=== PATIENT | male | born 1955 | race Asian ===

== ENCOUNTER 2025-06-29 09:56 | Day surgery (SDC) | payer OTHER, SELFPAY ==
[2025-06-29] VITALS (13 sets, daily range): BP systolic 148–211; BP diastolic 67–112; BMI 24.6
[2025-06-29 10:37] LABS: Glucose - Point of Care 140 mg/dl (70-99)
[2025-06-29] MEDS: NSS 220 ML IV (11:17)
--- NOTE | 2025-06-29 13:39 | ITS.CL.CATH ---
Hide Inspector - Catheterization
Cardiac Catheterization
Procedure Report:
CARDIAC CATHETERIZATION REPORT
Date of Procedure: 06/29/2025
Referring: Noelle Ramos M.D.
INDICATION: Known coronary artery disease, accelerating angina.
PROCEDURE:
1. Left heart catheterization.
2. Coronary angiography.
3. Successful IFR of the mid LAD.
A total of 68 minutes of procedural/moderate sedation was utilized. An independent medical doctor nuclear medicine was present to assist with and help manage the patient's level of consciousness and physiologic status.
ACCESS:
1. 6 Burmese right radial artery using a modified Seldinger technique.
2. 6 Burmese right common femoral artery using a modified Seldinger technique with a micropuncture kit under ultrasound guidance.
CATHETERS:
1. 4 Burmese JR4.
2. 4 Burmese JL 3.5.
3. 6 Burmese EBU 3.75 guiding catheter.
HEMODYNAMIC DATA
Weight (kg): 73.5
AO (s/d/x, mmHg): 127/58/83
LV (s/x mmHg): 127/22
LEFT VENTRICULOGRAPHY: Not performed.
CORONARY ANGIOGRAPHY
Dominance: Right.
Left Main: Normal size, bifurcating vessel. There is no coronary artery disease.
LAD: Normal size, densely calcified vessel giving rise to 1 notable diagonal. There is a 60% lesion in the mid LAD.
Ramus: Congenitally absent.
Circumflex: Normal size, nondominant vessel giving rise to 1 obtuse marginal which subsequently bifurcates into 2 daughter branches. There is a 60-70% lesion in the ostium of the circumflex. There is a new, 80% lesion in the proximal circumflex,
immediately proximal to the bifurcation point.
RCA: Normal size, dominant vessel. There is a 90% lesion in the mid vessel. The distal RCA is chronically totally occluded at the crux. The RPDA and distal RCA are supplied by collaterals from the LAD.
INTERVENTION(S)
1. Successful IFR of the 60% mid LAD lesion, demonstrating occlusive disease (IFR = 0.86).
Narrative:
The decision was made to perform physiologic testing. The diagnostic catheter was removed over a wire and exchanged for a(n) 6 Burmese EBU 3.75 guiding catheter. The guiding catheter was advanced into the ascending aorta and seated in the left main
coronary artery. Additional heparin was given to obtain an ACT greater than 250 seconds. An iFR wire was zeroed outside of the body, then inserted into the guiding sheath. The wire was advanced and the transducer was normalized just outside of the
guiding catheter tip. The wire was advanced into the mid LAD, beyond the 60% lesion. Three iFR measurements were taken. The lesion was determined to be occluded (0.86).
Closure Device: Vascular band for the right radial artery, 6 Burmese Angio-Seal for the right common femoral artery.
Radiation (mGy): 416
DAP (cm2.Gy): 20.9
Fluoroscopy time (minutes): 5.7
CONCLUSIONS
1. Right dominant circulation with 90% lesion in the mid RCA followed by total occlusion at the crux, a 60-70% lesion in the ostium of the circumflex, a new 80% lesion in the proximal circumflex immediately proximal to the bifurcation of the AV
groove circumflex and obtuse marginal and an occlusive 60% lesion in the mid LAD (IFR = 0.86).
2. Moderately elevated filling pressures (LVEDP = 22 mmHg at 73.5 kg).
RECOMMENDATIONS:
1. Expectant management after cardiac catheterization via right radial and right femoral approach.
2. Limited weight bearing on the right wrist for one week.
3. Consultation with CT surgery regarding optimal revascularization strategy given the ostial nature of the circumflex lesion and an occlusive mid LAD lesion with a EMERGENCY ROOM CLERK of the right coronary artery.
4. Continue OMT/GDMT as hemodynamics will tolerate.
5. Aggressive secondary prevention with high-dose, high potency statin. Goal LDL <55.
6. Start furosemide 40 mg p.o. daily. BMP in 1 week.
Copy to: Noelle Ramos M.D., Tristan Peace M.D.
Kg Velez DO, FACC, FACP
[2025-06-29 13:56] LABS: ACT-LR - POC > 397 Seconds (116-155)
[2025-06-29] MEDS: APRESOLINE 5 MG IV (15:57)
== END 2025-06-29 17:15 | disposition home or self-care (01) ==
LOC: CATH 09:56
PROVIDERS: ATTENDING PHYSICIAN Internal Medicine Cardiovascular Disease; FAMILY PHYSICIAN Internal Medicine; OTHER PHYSICIAN Internal Medicine Cardiovascular Disease
DX: I25.10 Atherosclerotic heart disease of native coronary artery without angina pectoris (principal); I45.10 Unspecified right bundle-branch block; E11.9 Type 2 diabetes mellitus without complications; I10 Essential (primary) hypertension; Z87.891 Personal history of nicotine dependence
CPT/HCPCS: 93799; 99152; 99153; 82962; 85347; 93005; 93458; C1760; C1769; C1894; Q9967

== ENCOUNTER → 2025-07-18 13:41 | Outpatient (REF) | payer OTHER, SELFPAY | LOC: HWRAD 13:41 | PROVIDERS: ATTENDING PHYSICIAN Thoracic Surgery (Cardiothoracic Vascular Surgery) | DX: I25.10 Atherosclerotic heart disease of native coronary artery without angina pectoris (principal); Z01.810 Encounter for preprocedural cardiovascular examination | CPT/HCPCS: 71250; 93306 ==

== ENCOUNTER 2025-07-25 05:36 | Inpatient (IN) | payer OTHER, SELFPAY ==
[2025-07-14 08:39] VITALS: BMI 25.3
[2025-07-14 09:24] LABS: Urine Character Clear (Clear)
[2025-07-14 09:36] LABS: Hematocrit 38.3 % (39.0-52.0); Hemoglobin 13.1 g/dL (13.0-18.0); INR 0.95; Mean Corp Hgb Conc. 34.2 g/dL (33.0-37.0); Mean Corpuscular Volume 89.3 fL (80.0-94.0); Nucleated Red Blood Cells % 0 % (-); PT 13.1 Sec (11.4-14.6); Platelet Count 221 10^3/uL (130-400); Red Cell Dist. Width 13.4 % (11.5-14.5)
--- NOTE | 2025-07-14 09:55 | CM ---
Chart reviewed. Met with the patient in PAT. Reviewed preoperative and postoperative instructions and restrictions, along with showering guidelines. Gave patient 2 soaps and Cardiac Surgery Book. Patient is agreeable to a home visit with CT
Transitional RN. Patient is independent of ADLS, lives alone in a apartment, 1st floor, 1 CHRIS, 0 DME. Patient's sister lives close and will be able to help patient after surgery. Plan is for the patient to return home with CT Transitional RN.
CM to follow
[2025-07-14 10:26] LABS: Glycohemoglobin (HgbA1c) 7.1 % (4.0-5.6)
[2025-07-14 11:18] LABS: ALT (SGPT) 25 U/L (0-50); AST (SGOT) 24 U/L (17-59); Albumin 4.3 g/dl (3.5-5.0); Alkaline Phosphatase 57 U/L (38-126); Blood Urea Nitrogen 11 mg/dl (9-20); Calcium 9.5 mg/dl (8.4-10.2); Carbon Dioxide 27 mmol/L (22-30); Chloride 95 mmol/L (98-107); Estimated Creatinine Clearance 66 ml/min; Glucose 124 mg/dl (70-99); Potassium 4.9 mmol/L (3.5-5.1); Sodium 130 mmol/L (135-145); Total Protein 7.5 g/dl (6.3-8.2); eGFR > 60.00
[2025-07-25] VITALS (13 sets, daily range): BP systolic 86–188; BP diastolic 69–88; BMI 24.3
--- NOTE | 2025-07-25 05:59 | W.CVOR.SURPR ---
[facility]OR Surgeon Immed Pre Op
-
I have examined this patient prior to performance of the scheduled procedure.
The patient's condition is unchanged from the time of the dictated/written History and
Physical and the patient is able to undergo the scheduled procedure.
[2025-07-25] MEDS: BACTROBAN 2% OINTMENT 1 APPLIC NASAL ×2 (06:15→20:11)
[2025-07-25] MEDS: MAGNESIUM OXIDE 400 MG PO (06:16)
[2025-07-25] MEDS: PROTONIX 40 MG PO (06:16)
--- NOTE | 2025-07-25 06:25 | PTCARENOTE ---
Patient arrived to room 2262 with his [id number]-tiu (Robin Echavarria) and information systems security manager. Patient A+A+Ox3. Patient ambulates without difficulty. No c/o pain or discomfort. Patient confirmed NPO status after midnight. Patient confirmed taking
4% chlorhexidine shower last night and this morning. Patient clipped and prepped. CHG wipes. Admission questions and medication reconciliation completed. Pre-Op medications - Patient's heart rate 55. Dr. Alfaro arrived to talk with patient.
Metoprolol 25 mg PO held per Dr. Alfaro. Patient resting in bed. account underwriter to [facility].
[2025-07-25 07:36] LABS: ACT+ - POC 109 Seconds (82-134)
[2025-07-25 07:54] LABS: B.E. - POC 0.5 mmol/L; Glucose - POC 145 mg/dl (70-99); HCO3 - POC 24 mmol/L (21-28); Hematocrit - POC 32 % PCV (42-52); Hemodilution- POC No; Hemoglobin Calculated - POC 11.0; Ionized Calcium - POC 1.15 mmol/L (1.15-1.33); Lactate - POC 0.47 mmol/L (0.36-0.75); O2 Saturation %Calculated-POC 99.8 % (94-98); PCO2 - POC 36 mmHg (35-48); PO2 - POC 224 mmHg (83-108); POC Comment PRE; Potassium - POC 3.8 mmol/L (3.5-5.1); Sodium - POC 133 mmol/L (136-145); Specimen Type - POC Arterial; pH - POC 7.44 (7.35-7.45)
[2025-07-25 07:57] LABS: Urine Character Clear (Clear)
[2025-07-25 08:19] LABS: Urine Squamous Cell 0-2 /LPF (Few)
[2025-07-25 08:20] LABS: Urine Red Blood Cell 0-2 /HPF (0-2)
--- NOTE | 2025-07-25 08:28 | CM ---
Reviewed chart. Mr. Echavarria is in the operating room today. Prior to admission he resides alone in a first floor apartment with one step to enter. Prior to admission he was independent with ambulation and adls. He does not have any DME in the home.
Medical work-up in progress. The discharge plan is to return home with his sister checking on him and a home visit by the Transitional Care Nurse when medically stable.
[2025-07-25 10:21] LABS: ACT+ - POC 792 Seconds (82-134)
[2025-07-25 10:27] LABS: B.E. - POC 4.8 mmol/L; Glucose - POC 168 mg/dl (70-99); HCO3 - POC 29 mmol/L (21-28); Hematocrit - POC 29 % PCV (42-52); Hemodilution- POC Yes; Hemoglobin Calculated - POC 9.7; Ionized Calcium - POC 1.06 mmol/L (1.15-1.33); Lactate - POC 0.34 mmol/L (0.36-0.75); O2 Saturation %Calculated-POC 100.0 % (94-98); PCO2 - POC 41 mmHg (35-48); PO2 - POC 430 mmHg (83-108); POC Comment CPB; Potassium - POC 3.8 mmol/L (3.5-5.1); Sodium - POC 134 mmol/L (136-145); Specimen Type - POC Arterial; pH - POC 7.46 (7.35-7.45)
[2025-07-25 10:40] LABS: ACT+ - POC 767 Seconds (82-134)
[2025-07-25 10:58] LABS: ACT+ - POC > 1003 Seconds (82-134)
[2025-07-25 10:58] LABS: B.E. - POC 4.0 mmol/L; Glucose - POC 175 mg/dl (70-99); HCO3 - POC 27 mmol/L (21-28); Hematocrit - POC 27 % PCV (42-52); Hemodilution- POC Yes; Hemoglobin Calculated - POC 9.2; Ionized Calcium - POC 1.02 mmol/L (1.15-1.33); Lactate - POC 1.43 mmol/L (0.36-0.75); O2 Saturation %Calculated-POC 99.9 % (94-98); PCO2 - POC 35 mmHg (35-48); PO2 - POC 260 mmHg (83-108); POC Comment CPB; Potassium - POC 4.3 mmol/L (3.5-5.1); Sodium - POC 133 mmol/L (136-145); Specimen Type - POC Arterial; pH - POC 7.50 (7.35-7.45)
[2025-07-25 11:12] LABS: ACT+ - POC 742 Seconds (82-134)
[2025-07-25] MEDS: SYNTHROID PO (11:15)
[2025-07-25 11:22] LABS: B.E. - POC 1.3 mmol/L; Glucose - POC 160 mg/dl (70-99); HCO3 - POC 26 mmol/L (21-28); Hematocrit - POC 29 % PCV (42-52); Hemodilution- POC Yes; Hemoglobin Calculated - POC 9.7; Ionized Calcium - POC 1.07 mmol/L (1.15-1.33); Lactate - POC 1.81 mmol/L (0.36-0.75); O2 Saturation %Calculated-POC 99.8 % (94-98); PCO2 - POC 41 mmHg (35-48); PO2 - POC 244 mmHg (83-108); POC Comment CPB; Potassium - POC 3.6 mmol/L (3.5-5.1); Sodium - POC 137 mmol/L (136-145); Specimen Type - POC Arterial; pH - POC 7.42 (7.35-7.45)
[2025-07-25 11:34] LABS: ACT+ - POC 672 Seconds (82-134)
[2025-07-25 11:50] LABS: B.E. - POC 0.3 mmol/L; Glucose - POC 147 mg/dl (70-99); HCO3 - POC 26 mmol/L (21-28); Hematocrit - POC 30 % PCV (42-52); Hemodilution- POC Yes; Hemoglobin Calculated - POC 10.1; Ionized Calcium - POC 1.07 mmol/L (1.15-1.33); Lactate - POC 1.97 mmol/L (0.36-0.75); O2 Saturation %Calculated-POC 99.9 % (94-98); PCO2 - POC 42 mmHg (35-48); PO2 - POC 299 mmHg (83-108); POC Comment WARM; Potassium - POC 3.5 mmol/L (3.5-5.1); Sodium - POC 140 mmol/L (136-145); Specimen Type - POC Arterial; pH - POC 7.39 (7.35-7.45)
[2025-07-25 12:00] LABS: ACT+ - POC 553 Seconds (82-134)
[2025-07-25 12:15] LABS: ACT+ - POC 582 Seconds (82-134)
[2025-07-25 12:27] LABS: B.E. - POC 3.1 mmol/L; Glucose - POC 129 mg/dl (70-99); HCO3 - POC 27 mmol/L (21-28); Hematocrit - POC 28 % PCV (42-52); Hemodilution- POC Yes; Hemoglobin Calculated - POC 9.6; Ionized Calcium - POC 1.09 mmol/L (1.15-1.33); Lactate - POC 1.57 mmol/L (0.36-0.75); O2 Saturation %Calculated-POC 100.0 % (94-98); PCO2 - POC 40 mmHg (35-48); PO2 - POC 411 mmHg (83-108); POC Comment WARM; Potassium - POC 3.7 mmol/L (3.5-5.1); Sodium - POC 139 mmol/L (136-145); Specimen Type - POC Arterial; pH - POC 7.45 (7.35-7.45)
[2025-07-25 12:34] LABS: ACT+ - POC 483 Seconds (82-134)
[2025-07-25 12:50] LABS: ACT+ - POC 615 Seconds (82-134)
[2025-07-25 13:14] LABS: B.E. - POC -1.3 mmol/L; Glucose - POC 117 mg/dl (70-99); HCO3 - POC 23 mmol/L (21-28); Hematocrit - POC 23 % PCV (42-52); Hemodilution- POC Yes; Hemoglobin Calculated - POC 8.0; Ionized Calcium - POC 1.29 mmol/L (1.15-1.33); Lactate - POC 1.67 mmol/L (0.36-0.75); O2 Saturation %Calculated-POC 99.9 % (94-98); PCO2 - POC 34 mmHg (35-48); PO2 - POC 312 mmHg (83-108); Potassium - POC 3.2 mmol/L (3.5-5.1); Sodium - POC 137 mmol/L (136-145); Specimen Type - POC Arterial; pH - POC 7.44 (7.35-7.45)
[2025-07-25 13:21] LABS: ACT+ - POC 598 Seconds (82-134)
[2025-07-25 13:38] LABS: B.E. - POC 1.9 mmol/L; Glucose - POC 110 mg/dl (70-99); HCO3 - POC 26 mmol/L (21-28); Hematocrit - POC 26 % PCV (42-52); Hemodilution- POC Yes; Hemoglobin Calculated - POC 8.7; Ionized Calcium - POC 1.12 mmol/L (1.15-1.33); Lactate - POC 0.88 mmol/L (0.36-0.75); O2 Saturation %Calculated-POC 100.0 % (94-98); PCO2 - POC 37 mmHg (35-48); PO2 - POC 472 mmHg (83-108); POC Comment CPB; Potassium - POC 4.6 mmol/L (3.5-5.1); Sodium - POC 137 mmol/L (136-145); Specimen Type - POC Arterial; pH - POC 7.45 (7.35-7.45)
[2025-07-25 13:47] LABS: ACT+ - POC 571 Seconds (82-134)
[2025-07-25 14:09] LABS: B.E. - POC 2.5 mmol/L; Glucose - POC 100 mg/dl (70-99); HCO3 - POC 26 mmol/L (21-28); Hematocrit - POC 23 % PCV (42-52); Hemodilution- POC Yes; Hemoglobin Calculated - POC 8.0; Ionized Calcium - POC 1.14 mmol/L (1.15-1.33); Lactate - POC 1.15 mmol/L (0.36-0.75); O2 Saturation %Calculated-POC 100.0 % (94-98); PCO2 - POC 37 mmHg (35-48); PO2 - POC 379 mmHg (83-108); POC Comment CPB; Potassium - POC 3.8 mmol/L (3.5-5.1); Sodium - POC 138 mmol/L (136-145); Specimen Type - POC Arterial; pH - POC 7.46 (7.35-7.45)
[2025-07-25 14:17] LABS: ACT+ - POC 492 Seconds (82-134)
[2025-07-25 14:45] LABS: B.E. - POC 1.7 mmol/L; Glucose - POC 98 mg/dl (70-99); HCO3 - POC 25 mmol/L (21-28); Hematocrit - POC 21 % PCV (42-52); Hemodilution- POC Yes; Hemoglobin Calculated - POC 7.0; Ionized Calcium - POC 1.10 mmol/L (1.15-1.33); Lactate - POC 0.76 mmol/L (0.36-0.75); O2 Saturation %Calculated-POC 100.0 % (94-98); PCO2 - POC 34 mmHg (35-48); PO2 - POC 353 mmHg (83-108); POC Comment WARM; Potassium - POC 4.1 mmol/L (3.5-5.1); Sodium - POC 141 mmol/L (136-145); Specimen Type - POC Arterial; pH - POC 7.48 (7.35-7.45)
[2025-07-25 14:48] LABS: ACT+ - POC 148 Seconds (82-134)
[2025-07-25 15:41] LABS: B.E. - POC -0.3 mmol/L; Glucose - POC 120 mg/dl (70-99); HCO3 - POC 25 mmol/L (21-28); Hematocrit - POC 26 % PCV (42-52); Hemodilution- POC Yes; Hemoglobin Calculated - POC 8.7; Ionized Calcium - POC 1.10 mmol/L (1.15-1.33); Lactate - POC 1.52 mmol/L (0.36-0.75); O2 Saturation %Calculated-POC 99.5 % (94-98); PCO2 - POC 39 mmHg (35-48); PO2 - POC 169 mmHg (83-108); POC Comment PRE; Potassium - POC 4.0 mmol/L (3.5-5.1); Sodium - POC 137 mmol/L (136-145); Specimen Type - POC Arterial; pH - POC 7.40 (7.35-7.45)
--- NOTE | 2025-07-25 15:42 | CON.INTV ---
Consultation
Consultation Request
Date/Time Consultation Requested: 07/25/2025 - 150
Date/Time Consultation Performed: 07/25/2025 - 153
Requesting Provider: UNRULY Duarte
Performing Provider: Dr. Linn
Reason for Consultation: s/p CABG x4 + ELAA
Medical History
-
Chief Complaint: Elective CABG
History of Present Illness:
69-year-old male with a past medical history of CAD, RBBB, DM type II and hypertension who presents for elective CABG. Patient known to the cardiothoracic surgery service with last visit on 07/12/[address] Alfaro. Patient's been experiencing
increased shortness of breath with chest heaviness on exertion and easy fatigability. Patient has known CAD with prior abnormal PET/CT myocardial stress test with subsequent cardiac catheterization showed CAD and was treated medically initially.
He had a repeat cardiac cath in June 2025 which showed progression of his multivessel CAD. Patient then referred to CT surgery here at . Surgical revascularization was discussed with the patient and the patient consented to this. Today,
patient underwent CABG x 4, GSV to OM1 with vein�to�vein anastomosis to graft to D1 and left atrial appendage exclusion with a 35 mm AtriClip. Patient tolerated the procedure well. Patient transferred to the CVICU for further care and paper machine back tender
services consulted for additional management/recommendations.
When I saw the patient he was intubated on SIMV at 12/500/40%/5, with PIP 21 cm water, VTE 516 cc and breathing at 12 breaths/min. Current heart rate 58, BP via A-line 116/56, BP via NIBP: 106/74 and saturating 100%. Currently on Levophed at 4
mcg/min, insulin drip at 2.6 units/hr. He has bilateral pleural chest tubes + mediastinal chest tubes x 2.
PMHx: RBBB, DM type II, hypertension, CAD
PSHx: Right elbow surgery, left shoulder surgery
Past Medical History
Past Medical History: Other (Above as per HPI)
Past Surgical History: Other (Above as per HPI)
Social History
Tobacco: Former Smoker (Quit beginning of July 2025)
Alcohol: Daily (2 drinks daily)
Drug: None
Personal:
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
Family History
Family History: Diabetes (Mother) and Hypertension (Father + mother)
Allergies / Home Medications
Allergies
Allergy/AdvReac Type Severity Reaction Status Date / Time
No Known Drug Allergies Allergy Unknown Verified 07/13/25 09:06
Home Medications
�Medication �Instructions �Recorded �Confirmed �Last Taken �Type
aspirin 81 mg tablet 81 mg PO DAILY Blood Clot 11/06/23 07/25/25 07/24/25 08:00 History
Prevention/Tx 81 mg
levothyroxine 75 mcg tablet 75 mcg PO DAILY Thyroid 11/06/23 07/25/25 07/24/25 08:00 History
75 mcq
losartan 100 mg tablet 50 mg PO DAILY Blood Pressure 11/06/23 07/25/25 07/17/25 08:00 History
100 mg
nitroglycerin 0.4 mg sublingual 0.4 mg sublingual [id number] PRN 11/06/23 07/25/25 Unknown Rx
tablet chest pain #25 tabs
rosuvastatin 20 mg tablet 20 mg PO HS High Cholesterol 11/06/23 07/25/25 07/24/25 20:00 History
20 mg
dapagliflozin propaned 5 1 tab PO BID Diabetes 06/29/25 07/25/25 07/24/25 20:00 History
mg-metformin ER 1,000 mg tablet, 1 Tab
ext rel 24hr (Xigduo XR)
mecobalamin (vitamin B12) 1,000 1,000 mcg PO DAILY Supplement 06/29/25 07/25/25 07/17/25 08:00 History
mcg chewable tablet (B12 Active) 1000 mcq
metoprolol succinate 25 mg 25 mg PO HS Blood Pressure 06/29/25 07/25/25 07/24/25 08:00 History
tablet,extended release 24 hr 25 mg
vitamins A,C,M-ydrh-pmkefl 2,148 2 tab PO BID Supplement 06/29/25 07/25/25 07/17/25 08:00 History
mcg-113 mg-45 mg-17.4 mg tablet 2 Tabs
(PreserVision AREDS)
Review of Systems
-
Unable to Obtain full review of systems at this time due to: Patient Intubation
Vitals / Labs / Diagnostic Testing
Vital Signs
Temp Pulse Resp BP Pulse Ox
98.4 F 55 16 179/83 99
07/25/25 06:13 07/25/25 06:15 07/25/25 06:13 07/25/25 06:15 07/25/25 06:13
Diagnostic Testing:
Physical Exam
-
HEENT: Normocephalic, Anicteric, Other (ETT in place) and Other (Poor dentition with multiple missing teeth)
Cardiovascular: S1/S2 and Peripheral Edema (negative)
Respiratory: Wheeze (negative), Rales (negative), Rhonchi (negative), Non-Labored Respirations, Other (Mechanical breath sounds heard bilaterally) and Other (Bilateral pleural chest tubes + mediastinal chest tubes x 2)
GI: Soft, Non Distended, Non Tender and Normal Bowel Sounds
Neurology: Tremors (negative) and Other (Sedated)
Skin: Warm and Dry
General: Respiratory Distress (negative), Comfortable, Fever (negative) and Chills (negative)
Assessment
-
Assessment: 69-year-old male with a past medical history of CAD, RBBB, DM type II and hypertension who presents for elective CABG. Patient known to the cardiothoracic surgery service with last visit on 07/12/[address] Alfaro. Patient's been
experiencing increased shortness of breath with chest heaviness on exertion and easy fatigability. Patient has known CAD with prior abnormal PET/CT myocardial stress test with subsequent cardiac catheterization showed CAD and was treated medically
initially. He had a repeat cardiac cath in June 2025 which showed progression of his multivessel CAD. Patient then referred to CT surgery here at . Surgical revascularization was discussed with the patient and the patient consented to this.
Today, patient underwent CABG x 4, GSV to OM1 with vein�to�vein anastomosis to graft to D1 and left atrial appendage exclusion with a 35 mm AtriClip. Patient tolerated the procedure well. Patient transferred to the CVICU for further care and
paper machine back tender services consulted for additional management/recommendations.
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
Impression:
#Multivessel CAD s/p CABG x 4 with takedown of RA to OM bypass due to poor radial artery flow with subsequent GSV to OM1 with vein�to�vein anastomosis to graft to D1 (POD #0)
#Acute anemia due to above
#Acute thrombocytopenia due to above
#Hypocalcemia
#Hypertension
#DM type II
#RBBB
Plan:
Ventilator settings reviewed
FiO2 will be weaned to maintain SpO2 >90-94%
Minute ventilation will be adjusted
Arterial blood gases will be monitored
Spontaneous breathing trial will be attempted with hopeful extubation after anesthesia/sedation wear off
prn nebulized bronchodilators - not currently bronchospastic
Pulmonary artery catheter parameters will be followed
Pressors/antihypertensive/inotropes/diuretics will be provided as needed
Maintain MAP>65
Replete electrolytes with K>4, Mg>2
Monitor chest tube output (bilateral pleural chest tubes + mediastinal chest tubes x 2)
Monitor hemoglobin
Monitor platelet count and coags
Transfuse blood products as needed to maintain Hb>7g/dL, plt>50k (given post-operative status)
CT surgery managing chest tubes
Monitor blood sugar to maintain euglycemia with goal BG 110-140
Insulin drip per protocol
Aspiration precautions
VAP prevention protocol
DVT prophylaxis
Early nutrition
Early mobilization
Critical care statement: A total of 42 minutes of critical care time was provided for this patient today. This includes management of ventilator, spontaneous breathing trial, arterial blood gases, pressors, of unstable vital signs, evaluation of the
patient at bedside, reviewing the patient's pertinent medical records including radiographs, microbiology, laboratory evaluations, and discussion with primary team and critical care nursing.
--- NOTE | 2025-07-25 15:43 | W.IMMPOSTOP ---
Addendum entered and electronically signed by Chalo Alfaro MD 07/25/25 16:44:
[id number]
Original Note:
Surgical Immed Post Op Note
-
CARDIAC SURGERY OPERATIVE NOTE:
Preoperative Dx:
MVCAD
Mild
Postoperative Dx:
Same
Procedures:
1) Median sternotomy
2) Takedown of GRISEL (narrow pedicle)
3) Endoscopic harvest of L RA
4) Endoscopic harvest of RLE GSV
5) CABG x 4 (GRISEL to LAD, GSV to D1, RA to OM1, GSV to RPLB)
6) ELAA (35mm AtriClip)
7) Endoscopic harvest of LLE GSV
8) Re-establishment of cardioplegic arrest
9) Takedown of RA to OM bypass
10) GSV to OM1 w/ [id number]-li-[id number] anastomosis to graft to D1
Surgeon:
Chalo Alfaro M.D.
Assistants:
Anai Mireles P.A.-C.; endoscopic harvest/prep of L RA, carpenter assistant installer throughout
Gisela Pelaez P.A.-C.; endoscopic harvert/prep of B/L GSV
Anesthesia:
Freedom Smith M.D. and Rich Bailey, CHeatherR.N.A.
Perfusion:
Leobardo SealsC.PHeather and Truman Kaiser CHeatherCHeatherP.
CPB: 131 + 80 (211); XC: 70 + 67 (137)
Findings:
GRISEL was a healthy conduit w/ brisk flow - ELD 2.5mm
L RA was heavily calcified conduit w/ brisk back bleeding and excellent ELD at 3.50-3.75mm
RLE GSV was reasonable conduit w/ ELD 3.5 w/ variable wall thickness (normal to thin)
LLE GSV was reasonable conduit w/ short segment of usable ELD @ 3.5mm and longer segment of unusable diminutive ELD
LAD was visible on the epicardial surface, moderate scattered calcifications, ELD 2.5mm
D1 was visible on the epicardial surface, moderate scattered calcifications, ELD 2.25mm
OM1 was visibile on the epicardial surface, dense closely spaced calcifications, ELD 2.5mm
RCA was too calcified to accommodate bypass
PDA was too small and calcificed to accommodate bypass
RPLB2 was small, but was amenable to bypass, moderate scattered calcifications, ELD 2.0mm
Post initial separation from CPB, RA w/ no flow on U/S flow probe assessment despite initial back-bleeding
LLE GSV harvest completed
CPB and cardioplegic arrest re-established w/ takedown of RA graft w/ redo anastomosis to OM1 w/ GSV and subsequent hgol-cg-lstj anastomosis off graft to D1
Postop - RA conduit was opened longitudinally, there was a limited dissection associated w/ one of the luminal calcifications w/ flap clearly responsible for observed cessation of flow
Excellent flow in all grafts on U/S flow probe assessment
Post-MANNY: LVEF 65-70% w/o RWMA, RV ok, SUNDAY excluded, [id number] , mild MR (posterior MAC), normal TV, grade 5 distal aortic arch atheromatous disease
Implants:
CT x 4 (B/L pleural, inferior mediastinal, superior mediastinal)
AtriClip 35mm
Sternal wires x 9
Transfusions:
1U PRBC
Complications:
See findings above
Condition:
62 sinus (0.3/0.1), 94/47, CPV 18, 100%
GTTS: levophed 2, precedex 0.5, insulin 1
Stable/guarded to CVICU
[2025-07-25] MEDS: LR 250 ML IV ×3 (16:15→18:40)
[2025-07-25 16:21] LABS: Glucose - Point of Care 113 mg/dl (70-99)
--- NOTE | 2025-07-25 16:30 | W.PN.UPDATE ---
Update Note
Progress Note Update
69 year old male electively admitted 07/25/25 for CABG due to triple vessel coronary disease with exertional angina
IV fluids: 1900
U.O.:� 1400
Blood:� 1PRBC
Wires:� 2 bipolar V wires
Drips: Levophed @ 2, Insulin @ 1, Precedex @ 0.5
�
NEURO: sedated, pupils +2mm B/L
RESP: #8OT @23cm> 500/40%/14/5. Lungs clear B/L. 2 mediastinal (55cc on arrival) and R/L pleural (40cc on arrival) chest tubes to -20cm suction. Sanguineous drainage
CV: RRR +S1, S2, no S3, no�rub, no murmur. Aquacell to median sternotomy. RIJ w/Slik intact
ABD: round, soft, no BS
EXT: no edema, +2/4 DP pulses B/L, no femoral bruit, B/L LE and LUE CLARENCE wraps intact; right radial A-line intact
: Nunez with clear yellow urine
�
A/P: POD #0 s/p CABG x 4 WILKES; SVG-RPL; SVG-OM with SVG Y graft to diag (as radial graft with poor flow), left atrial appendage #35mm clip
MANNY: EF�60-65%
- wean and extubate
- maintain SBP 90-130mmHg
- report of broken shape teeth per anesthesia
# CAD
- will require ASA, Plavix, statin, beta-ervin
�
# acute surgical blood loss anemia-expected
-Hb 8.7 s/p 1 PRBC intra-op
- trend CBC
�
# T2DM (A1C 7.1)
- insulin infusion x 48h
- resume Xigduo on DC
- resume ARB as BP permits
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
�
# Hypothyroidism
- resume�levothyroxine 75mcg daily
[2025-07-25 16:38] LABS: B.E. -1.5 mmol/L; HCO3 22.8 mmol/L (21-28); Hematocrit 27.3 % (39.0-52.0); Hemoglobin 9.7 g/dL (13.0-18.0); O2 Saturation % 99.6 % (94-98); PCO2 36 mmHg (35-48); PO2 157 mmHg (83-108); Platelet Count 122 10^3/uL (130-400); Potassium 4.6 mMOL/L (3.5-5.1); Sodium 137 mMOL/L (136-145)
[2025-07-25 16:46] LABS: INR 1.74; PT 20.5 Sec (11.4-14.6)
[2025-07-25 16:47] LABS: APTT 28.0 Sec (23.4-35.0)
--- NOTE | 2025-07-25 16:47 | PTCARENOTE ---
received pt from [facility] into 2261, sinus rhythm on tele w epicardial wires insulated, + peripheral pulses, no edema noted, + rub. Lungs clear, #8 ETT/ 23cm right lip, VENT SETTINGS: SIMV 40%/500/12/+5 PEEP, POX 100%. CT x4 w red drainage, jacobs
draining clear yellow. Right IJ cordis w swan, PIV flushes easily. RASS -5, CPOT 0.
DRIPS: Levophed 2mcg/min
Precedex 0.5mcg/kg/hr
Insulin titrated per glycemic protocol
--- NOTE | 2025-07-25 16:57 | PTCARENOTE ---
post procedure EKG, CXR and labs obtained as ordered.
[2025-07-25] MEDS: CALCIUM GLUCONATE 100 IV (17:01)
[2025-07-25] MEDS: NSS 500 IV (17:02)
[2025-07-25] MEDS: NEURONTIN PO ×3 (17:02→22:50)
[2025-07-25] MEDS: ANCEF 10 IV ×2 (17:02)
[2025-07-25] MEDS: NOVOLOG FLEXPEN SC ×2 (17:02)
[2025-07-25] MEDS: PACERONE PO (17:03)
[2025-07-25] MEDS: TYLENOL PO ×2 (17:03→22:50)
[2025-07-25 17:19] LABS: Blood Urea Nitrogen 14 mg/dl (9-20); Estimated Creatinine Clearance 83 ml/min; Glucose 107 mg/dl (70-99); Magnesium 2.9 mg/dl (1.6-2.3)
[2025-07-25 17:23] LABS: Glucose - Point of Care 125 mg/dl (70-99)
--- NOTE | 2025-07-25 17:27 | PTCARENOTE ---
Ca replaced as ordered
[2025-07-25] MEDS: DILAUDID 0.5 MG IV ×2 (17:42→22:52)
--- NOTE | 2025-07-25 17:57 | PTCARENOTE ---
pt's son at bedside, updated.
[2025-07-25 18:06] LABS: Glucose - Point of Care 127 mg/dl (70-99)
--- NOTE | 2025-07-25 19:00 | PTCARENOTE ---
report received from previous RN. pt in bed, awakens for short periods, follows commands but agitated, MEEK equally. pupils equal and reactive bilaterally. SR/SB on monitor, HR 50s-60s. epicardial V. wires insulated. + peripheral pulses. no edema
noted, + rub. bilateral breath sounds present. #8 ETT intact @ 23cm right lip, vent set to SIMV 40%/500/12/+5 PEEP, POX 100%. CT x4 intact to -20 cm wall suction, drainage WNL, no air leak present. jacobs catheter intact, draining CYU. hypoactive
bowel sounds present. RIJ cordis and slic catheter intact w KVOs infusing. PIV intact and patent. all surgical sites stable. Levo infusing @ 4mcg. Insulin gtt infusing per protocol.
[2025-07-25 19:08] LABS: Glucose - Point of Care 114 mg/dl (70-99)
[2025-07-25 20:04] LABS: Glucose - Point of Care 120 mg/dl (70-99)
[2025-07-25] MEDS: SENOKOT PO (20:12)
[2025-07-25] MEDS: ANCEF 5 IV (20:25)
[2025-07-25] MEDS: ASPIRIN 300 MG RECTAL (20:25)
[2025-07-25 20:36] LABS: Hematocrit 26.2 % (39.0-52.0); Hemoglobin 9.1 g/dL (13.0-18.0); Platelet Count 148 10^3/uL (130-400)
[2025-07-25 20:56] LABS: Glucose - Point of Care 125 mg/dl (70-99)
[2025-07-25 21:39] LABS: B.E. -2.5 mmol/L; HCO3 20.9 mmol/L (21-28); O2 Saturation % 99.7 % (94-98); PCO2 30 mmHg (35-48); PO2 171 mmHg (83-108); Potassium 4.3 mMOL/L (3.5-5.1)
[2025-07-25] MEDS: SODIUM BICARBONATE 50 MEQ IV (21:57)
--- NOTE | 2025-07-25 22:00 | PTCARENOTE ---
ABG reviewed w CT PA. orders received for 1 amp Na bicarb and 2g Ca gluconate. pt extubated to 6LNC by RT without incident. no wheezing or stridor present. pt oriented x4. IS 1999.
[2025-07-25 22:35] LABS: Glucose - Point of Care 114 mg/dl (70-99)
[2025-07-25] MEDS: CALCIUM GLUCONATE 130 MG IV (22:49)
[2025-07-25] MEDS: CRESTOR PO (22:50)
[2025-07-25] MEDS: ZOFRAN 4 MG IV (22:57)
--- NOTE | 2025-07-25 23:00 | PTCARENOTE ---
no acute changes in assessment, VSS. pt oriented x4. c/o sternal incision pain - see MAR for PRN med administration. SR on monitor, HR 70s. POX 100% on 4LNC. CT output and UO WNL. all surgical sites stable. Levo gtt infusing @ 2mcg. Insulin gtt
infusing per protocol.
--- NOTE | 2025-07-25 23:26 | RESPNOTE ---
Addendum entered by Christi Galan, RT 07/25/25 23:27:
07/25/35 @ 2200
Original Note:
PT was extubated at this time and placed on a 6L n/c and vitals are stable. I/S was done and he achieved 2,000 mls x 3 attempts.
[2025-07-26] VITALS (37 sets, daily range): BP systolic 79–128; BP diastolic 58–88; PULSE 79; O2SAT 99–100; BMI 25.4
[2025-07-26 00:10] LABS: Glucose - Point of Care 111 mg/dl (70-99)
[2025-07-26 01:25] LABS: Glucose - Point of Care 104 mg/dl (70-99)
[2025-07-26 02:33] LABS: Glucose - Point of Care 98 mg/dl (70-99)
--- NOTE | 2025-07-26 03:00 | PTCARENOTE ---
no acute changes in assessment, VSS. pt oriented x4. SR on monitor, HR 70s-80s. POX 100% on room air. CT output and UO WNL. all surgical sites stable. Levo gtt off. Insulin gtt infusing per protocol.
[2025-07-26 03:41] LABS: Glucose - Point of Care 110 mg/dl (70-99)
--- NOTE | 2025-07-26 04:08 | W.PN.CT ---
Today's Communication / Plan
-
Plan:
-No major issues overnight. Hemodynamically and neurologically intact
-Successfully extubated last night 07/25/25 @ 2200
-Weaned of Levophed gtt overnight. Remains on insulin gtt per protocol
-No swan, U/O since OR 1200 mL
-Had postop bradycardia, Amiodarone was held last night. Will assess for PO Amiodarone and BB today
-Currently in NSR @ 78 bpm
-Cont. current meds (ASA, Plavix, Crestor, Synthroid)
-Monitor chest tube for output: 2meds 330/415, R/L pleurals 190/255
-Monitor h/h 8.2/23.2, did receive 750 mL of LR postop
-D/C'd SLIC and A-line this AM @ 0430
-Will D/C jacobs later today to avoid complication of urinary retention, long pump run
-Will renew insulin gtt per protocol, diabetes education/management consult, Hgb A1C 7.1
-Maintain cordis another day for phlebotomy and meds
-Maintain temporary v-wires (will cut before d/c home)
-Encourage use of IS
-Wean O2 as tolerated
-OOB into chair/Ambulate
Assessment / Plan
-
Assessment:
-S/P Median sternotomy/ CABG x 4 (GRISEL to LAD, GSV to D1, RA to OM1, GSV to RPLB)/ Endoscopic harvest of L RA/ Endoscopic harvest of RLE GSV/Endoscopic harvest of LLE GSV/ ELAA (35mm AtriClip)/CPB and cardioplegic arrest re-established w/ takedown
of RA graft w/ redo anastomosis to OM1 w/ GSV and subsequent mfxm-ds-jjmo anastomosis off graft to D1, by Dr. Alfaro, 07/25/25, pod#1
-Severe 3v CAD
-Mild-moderate
-Trace AI
-LVEF 60-65% per intraop MANNY
-HTN
-Hyperlipidemia
-T2DM (hgb A1C 7.1)
-Hypothyroidism
-Chronic RBBB
-Hyponatremia, 130
-Tobacco use (quite 1 week ago)
-S/P R elbow repair
-S/P L shoulder repair
-Acute postop blood loss/Anemia (transfused 1u PRBC)
-Acute postop thrombocytopenia (stable without active bleed)
-Acute postop atelectasis
-Acute postop hypovolemia with subsequent hypervolemia
-Acute postop bradycardia
Discussed patient care with: Cardiology, Nursing, Respiratory Therapy, Pharmacy and Care Team
Subjective
Procedure
S/P Median sternotomy/ CABG x 4 (GRISEL to LAD, GSV to D1, RA to OM1, GSV to RPLB)/ Endoscopic harvest of L RA/ Endoscopic harvest of RLE GSV/Endoscopic harvest of LLE GSV/ ELAA (35mm AtriClip)/CPB and cardioplegic arrest re-established w/ takedown of
RA graft w/ redo anastomosis to OM1 w/ GSV and subsequent hplp-jj-ekdc anastomosis off graft to D1, by Dr. Alfaro, 07/25/25
-
Date of Service: July 26, 2025
Pt c/o incisional pain, otherwise feels well
Objective Data
-
PT 20.5 Sec (11.4-14.6) H 07/25/25 16:15
INR 1.74 07/25/25 16:15
APTT 28.0 Sec (23.4-35.0) 07/25/25 16:15
Vital Signs
Vital Signs
Temp Pulse Resp BP Pulse Ox
98.8 F 84 14 117/80 100
07/26/25 02:00 07/26/25 02:25 07/26/25 02:25 07/26/25 02:25 07/26/25 02:25
CT Intake/Output/Weight
07/25/25 07/25/25 07/26/25
06:59 18:59 06:59
Intake Total 629.5 / 1287.0 657.5 / 1287.0
Output Total 600 / 1600 1000 / 1600
Balance 29.5 / -313.0 -342.5 / -313.0
SaO2: 97 (RA)
Physical Exam
-
General: Awake, Oriented and AOx3
Cardiovascular: Regular rate & rhythm, No Murmurs, No Rub and No Gallop
Respiratory: Decreased Breath Sounds (at bases, otherwise clear )
Sternum: Stable
Incision: Clean, Dry, Intact and Dressing Intact
Extremities: Other (+trace edema)
Data Reviewed
-
Lab Results: Results Reviewed
Medications: Active Meds Reviewed
Chest X-Ray: Report Reviewed and Image Reviewed
ECG: Report Reviewed and Image Reviewed
[2025-07-26 04:10] LABS: Glucose - Point of Care 108 mg/dl (70-99)
[2025-07-26] MEDS: FLEXERIL 5 MG PO (04:30)
[2025-07-26] MEDS: ANCEF 5 IV ×2 (04:30→12:06)
[2025-07-26 04:31] LABS: Hematocrit 23.2 % (39.0-52.0); Hemoglobin 8.2 g/dL (13.0-18.0); Mean Corp Hgb Conc. 35.3 g/dL (33.0-37.0); Mean Corpuscular Volume 87.5 fL (80.0-94.0); Platelet Count 120 10^3/uL (130-400); Red Cell Dist. Width 13.4 % (11.5-14.5)
[2025-07-26 04:57] LABS: Blood Urea Nitrogen 16 mg/dl (9-20); Calcium 8.8 mg/dl (8.4-10.2); Carbon Dioxide 25 mmol/L (22-30); Chloride 110 mmol/L (98-107); Estimated Creatinine Clearance 66 ml/min; Glucose 101 mg/dl (70-99); Magnesium 2.4 mg/dl (1.6-2.3); Potassium 4.3 mmol/L (3.5-5.1); Sodium 140 mmol/L (135-145); eGFR > 60.00
[2025-07-26 05:52] LABS: Glucose - Point of Care 83 mg/dl (70-99)
[2025-07-26] MEDS: TYLENOL 975 MG PO ×3 (05:53→21:08)
[2025-07-26] MEDS: SYNTHROID 75 MCG PO (05:53)
[2025-07-26 06:15] LABS: INR 1.36; PT 17.0 Sec (11.4-14.6)
--- NOTE | 2025-07-26 06:30 | PTCARENOTE ---
RIJ slic catheter and R radial art line d/c'd per orders. jacobs to remain per CT PA. pt assisted OOB to chair without difficulty. weight obtained. VSS.
--- NOTE | 2025-07-26 07:44 | W.PN.INTV ---
Today's Communication / Plan
Recommendations
Continue insulin drip with goal BG 110�140
Pain control
Up OOB as tolerated
Removal of chest tubes per CT surgery team
Maintain SpO2 >90-94%
Trend H/H, transfusion to keep Hb >7-8 g/dL
Flue Cleaner services will continue to follow along while patient remains in CVICU
Assessment
-
Assessment: 69-year-old male with a past medical history of CAD, RBBB, DM type II and hypertension who presents for elective CABG. Patient known to the cardiothoracic surgery service with last visit on 07/12/[address] Alfaro. Patient's been
experiencing increased shortness of breath with chest heaviness on exertion and easy fatigability. Patient has known CAD with prior abnormal PET/CT myocardial stress test with subsequent cardiac catheterization showed CAD and was treated medically
initially. He had a repeat cardiac cath in June 2025 which showed progression of his multivessel CAD. Patient then referred to CT surgery here at . Surgical revascularization was discussed with the patient and the patient consented to this.
Today, patient underwent CABG x 4, GSV to OM1 with vein�to�vein anastomosis to graft to D1 and left atrial appendage exclusion with a 35 mm AtriClip. Patient tolerated the procedure well. Patient transferred to the CVICU for further care and
tone regulator services consulted for additional management/recommendations.
Chronic conditions CV RN: RBBB, DM type II, hypertension, CAD
Impression:
#Multivessel CAD s/p CABG x 4 with takedown of RA to OM bypass due to poor radial artery flow with subsequent GSV to OM1 with vein�to�vein anastomosis to graft to D1 (POD #1)
#Acute anemia due to above
#Acute thrombocytopenia due to above
#Hypocalcemia
#Hypertension
#DM type II
#RBBB
Plan:
Patient was successfully extubated last night and is now on room air breathing comfortably
Maintain SpO2 >90-94%
prn nebulized bronchodilators - not currently bronchospastic
Encourage IS use q1hr while awake
Pressors/antihypertensive/inotropes/diuretics will be provided as needed
Maintain MAP>65
Replete electrolytes with K>4, Mg>2
Monitor chest tube output (bilateral pleural chest tubes + mediastinal chest tubes x 2)
Monitor hemoglobin
Monitor platelet count and coags
Transfuse blood products as needed to maintain Hb>7g/dL, plt>50k (given post-operative status)
CT surgery managing chest tubes
Monitor blood sugar to maintain euglycemia with goal BG 110-140
Insulin drip per protocol
Aspiration precautions
DVT prophylaxis
Early nutrition
Early mobilization
Critical care statement: A total of 42 minutes of critical care time was provided for this patient today. This includes management of ventilator, spontaneous breathing trial, arterial blood gases, pressors, of unstable vital signs, evaluation of the
patient at bedside, reviewing the patient's pertinent medical records including radiographs, microbiology, laboratory evaluations, and discussion with primary team and critical care nursing.
Subjective Dataa
Subjective Data
Date of Service:
Date of Service: July 26, 2025
Chief Complaint: Flue Cleaner Follow Up
Subjective:
Patient seen and evaluated this morning. Currently on insulin drip at 0.7 units/h. Heart rate 72, BP 105/74. Currently on room air breathing comfortably. Has no complaints, denying chest pain, SOB, fevers or chills.
Review of Systems
General: Other (Negative unless mentioned above)
Objective Data
Data Reviewed
Vital Signs / I&O / Oxygen:
Vital Signs
Temp Pulse Resp BP Pulse Ox
98.0 F 91 17 125/76 97
07/26/25 06:00 07/26/25 06:00 07/26/25 06:00 07/26/25 04:39 07/26/25 06:17
Intake and Output
07/24/25 07/25/2507/26/25
06:59 06:59 06:59
Intake Total 1377.6 / 1377.6
Output Total 1889 / 1889
Balance -512.4 / -512.4
SaO2 [CPAP] 100
SaO2 [SIMV] 100
SaO2 97
Nasal Cannula flow liters per 2
minute
Physical Exam
General: Respiratory Distress (negative) and Comfortable
HEENT: Normocephalic, Anicteric and Other (R-IJ cordis)
Cardiovascular: S1-S2, Murmur (MANI heard across anterior precordium), Rub (Positive) and Peripheral Edema (negative)
Respiratory: Wheeze (negative), Crackles (negative), Rhonchi (negative) and Non-Labored Respirations
GI: Soft, Non Distended, Non Tender and Normal Bowel Sounds
Neurology: Awake, Alert, Oriented and Tremors (negative)
Skin: Warm, Dry, Cyanosis (negative) and Jaundice (negative)
Labs/Micro/Reports
Lab Data
07/26/25 04:11
07/26/25 04:11
Laboratory Results
07/25/25 07/25/25 07/26/25
16:15 21:31 04:11
PT 20.5 H Cancelled
INR 1.74 Cancelled
APTT 28.0
pH 7.41 7.45
pCO2 36 30 L
pO2 157 H 171 H
HCO3 22.8 20.9 L
O2 Delivery Level
07/26/25
05:50
PT 17.0 H
INR 1.36
APTT
pH
pCO2
pO2
HCO3
O2 Delivery Level
--- NOTE | 2025-07-26 08:00 | PTCARENOTE ---
pt received from previous RN, oriented, OOB in chair. SR on the monitor, HR 70-80s. +rub. V wires x2, insulated. SBP 90-110s. palpable pulses, L ulnar verified by Doppler. trace generalized edema. pt on RA, 100% POX. lungs diminished in bases. IS
1000-1500ml. CTx4, no air leak or crepitus noted, TRAVEL COUNSELOR aware of output. pt abdomen s/n, denies n/v. clears tolerated. Nunez in place, clear yellow urine. sternal Aquacel intact, chest tube site c/d/i. b/l groins intact. b/l LE CLARENCE bandages in place,
LUE CLARENCE bandage in place. RIJ cordis maintained. PIV. insulin gtt running as ordered. see worklist for VS, I&O, and assessment.
[2025-07-26 08:01] LABS: Glucose - Point of Care 127 mg/dl (70-99)
[2025-07-26] MEDS: NOVOLOG FLEXPEN SC ×2 (08:25→11:30)
[2025-07-26] MEDS: LIDOCAINE 4% PATCH 1 PATCH TOPICAL (08:37)
[2025-07-26] MEDS: PLAVIX 75 MG PO (08:38)
[2025-07-26] MEDS: PROTONIX 40 MG PO (08:38)
[2025-07-26] MEDS: LOPRESSOR 12.5 MG PO ×2 (08:38→19:43)
[2025-07-26] MEDS: NEURONTIN 100 MG PO ×3 (08:38→21:08)
[2025-07-26] MEDS: PACERONE 200 MG PO ×3 (08:38→21:08)
[2025-07-26] MEDS: VITAMIN C 500 MG PO (08:38)
[2025-07-26] MEDS: LOW STRENGTH ASPIRIN 81 MG PO (08:38)
[2025-07-26] MEDS: FEOSOL 325 MG PO (08:38)
[2025-07-26] MEDS: SENOKOT 8.6 MG PO ×2 (08:38→19:43)
[2025-07-26] MEDS: BACTROBAN 2% OINTMENT 1 APPLIC NASAL ×2 (08:39→19:43)
--- NOTE | 2025-07-26 09:08 | W.PN.ANS.POP ---
Anesthesia Post Operative
- Anesthesia Post Op Note
Vital Signs Stable-See Nursing Note: Yes
Airway Patent: Yes
Adequate Pain Control: Yes
Change in Mental Status: No
Current Postoperative Nausea & Vomiting: No
Anesthesia Complications: No
General Anesthetic Recall: No
Unplanned Admission: No
Post Op Hydration Adequate: Yes
- -
Pt OOB to chair, resting comfortably. VSS
--- NOTE | 2025-07-26 09:37 | W.PN.CD ---
Addendum entered and electronically signed by Albert Gonzales MD 07/26/25 10:03:
I saw and examined the patient.
The INSPECTOR WELDED PARTS's note was reviewed and I agree with the note.
Comment:
69-year-old man with hypertension, dyslipidemia, diabetes, former smoker, and coronary artery disease who is s/p CABG x 4 on 07/25/[address] Alfaro. Today he feels well. Some mild chest discomfort at the site of his chest tubes. Left hand feels
cold.
Physical exam: Sitting up in the chair, [address], RRR, no murmurs, clear lungs bilaterally, no lower extremity edema; bandage over sternal wound, CLARENCE wraps on left forearm and both legs
Postop ECG by my review shows normal sinus rhythm with right bundle branch block and T wave inversions in the inferior leads
Telemetry: Normal sinus rhythm
He is doing well post CABG. Continue routine postoperative management per CV surgery.
CV meds: Prophylactic amiodarone 200mg 3 times daily, aspirin 81 mg daily, clopidogrel 75 mg daily, metoprolol 12.5 mg twice daily, rosuvastatin 20 mg daily
Original Note:
Today's Communication / Plan
-
Follow telemetry
Impression / Plan
-
I/P: 69M with HTN, dyslipidemia, type 2 diabetes mellitus, former smoker, and CAD presents for CABG. An abnormal PET/CT in 10/2023 showed basal/mid inferior ischemia and reduced coronary flow reserve. He then had a cardiac cath in November without
intervention done at that time. He was being medically managed by his primary client coordinator where he had LEVIN and chest discomfort prompting another cardiac catheterization prompting CT surgery evaluation.
Primary client coordinator: Dr. Ramos�
CAD s/p CABG x 4 (GRISEL to LAD, GSV to D1, RA to OM1, GSV to RPLB) on 07/25/[address] Alfaro
- Post MANNY LVEF 65-70% without regional wall motion abnormality
- EKG stable in sinus rhythm, maintaining sinus on telemetry
- Rub on exam, follow
HTN, stable, follow
Hypercholesterolemia, goal LDL <55, continue rosuvastatin 20 mg
RBBB
Type 2 diabetes mellitus, HgbA1c 7.1%
Former smoker, quit within the last 30 days, continued cessation recommended
Physical Exam
Vital Signs/Labs
Vital Signs
Temp Pulse Resp BP Pulse Ox
98.3 F 90 20 102/58 100
07/26/25 08:00 07/26/25 09:00 07/26/25 09:00 07/26/25 09:00 07/26/25 09:21
07/25/25 07/26/25 07/27/25
06:59 06:59 06:59
Actual Weight 70.4 kg 73.6 kg
07/26/25 04:11
07/26/25 04:11
PT 17.0 Sec (11.4-14.6) H 07/26/25 05:50
INR 1.36 07/26/25 05:50
APTT 28.0 Sec (23.4-35.0) 07/25/25 16:15
Magnesium 2.4 mg/dl (1.6-2.3) H 07/26/25 04:11
Physical Exam
Constitutional: No acute distress and Comfortable
EENT: Anicteric and Moist mucous membranes
Cardiovascular: Rhythm & rate is regular, Pedal edema is absent, S1S2 is normal and Rub present
Respiratory: Respiratory effort normal and Lungs clear to auscul.
GI: Soft, Distention absent, Flat, Non tender and Normal bowel sounds
Neuro/Psych: AO x 3
Other: Skin (Warm and dry without edema)
Data Reviewed
-
Date of Service: July 26, 2025
EKG: Report Reviewed by me
Labs: Labs Reviewed by me
Old Records: Reviewed
[2025-07-26 10:12] LABS: Glucose - Point of Care 92 mg/dl (70-99)
[2025-07-26] MEDS: NOVOLIN R INSULIN INFUSION 100 IV (11:56)
[2025-07-26 12:04] LABS: Glucose - Point of Care 94 mg/dl (70-99)
[2025-07-26] MEDS: TORADOL 15 MG IV (12:05)
[2025-07-26] MEDS: COLCHICINE 0.3 MG PO (12:06)
--- NOTE | 2025-07-26 12:30 | PTCARENOTE ---
pt VS completed, pt SBP 70-90s in chair, c/o lightheadedness and dizziness w/ standing. pt placed back to bed x2 assist. SBP improved to 90-110s. C PYTHON DEVELOPER aware. PRBC x1 transfusing as ordered. son at bedside, updated. V wires tested w/ C PYTHON DEVELOPER, both sets
capture.
--- NOTE | 2025-07-26 13:09 | PN.DE.MGMTRT ---
Insulin Management
- -
07/26/2025 Diabetes Management Consult
Patient admitted 07/25 for OR for CABG x 4. PMH angina, R BBB, diabetes, HTN, CAD, R coronary artery occlusion. Prior to admission was taking Xigduo 03/1000 BID for diabetes. A1C on admission 7.1%, cr 1, eGFR > 60.
POD 1 s/p CABG. Patient is awake sleepy, answers questions but quickly dozes back off. States he has had diabetes 4 years, follows with endocrine. He states he has a meter but really doesn't test.
Patient currently receiving critical care glycemic protocol @ .3 to 2.6 units of insulin per hour, glucose range 83 to 127. Will continue insulin infusion and assess for readiness to transition to farxiga and metformin in AM.
Discussed with nurse.
Will follow
Diabetes History
- -
Type of Diabetes: 2
Pre-Admission Diabetes Regimen
07/25/25 07/26/25
16:15 04:11
Creatinine 0.8 1.0
Lab Results
Hemoglobin A1c 7.1 % (4.0-5.6) H 07/14/25 08:50
Insulin Pump Settings
IP Diabetes Regimen
07/25/25 07/25/25 07/25/25
16:15 16:19 17:22
Glucose 107 H
POC Glucose 113 H 125 H
07/25/25 07/25/25 07/25/25
18:04 19:07 20:02
Glucose
POC Glucose 127 H 114 H 120 H
07/25/25 07/25/25 07/26/25
20:55 22:34 00:08
Glucose
POC Glucose 125 H 114 H 111 H
07/26/25 07/26/25 07/26/25
01:23 02:30 03:40
Glucose
POC Glucose 104 H 98 110 H
07/26/25 07/26/25 07/26/25
04:08 04:11 05:51
Glucose 101 H
POC Glucose 108 H 83
07/26/25 07/26/25 07/26/25
07:59 10:11 12:02
Glucose
POC Glucose 127 H 92 94
Meal type: Breakfast
Amount consumed: 100%
Patient Education
[2025-07-26 14:00] LABS: Glucose - Point of Care 105 mg/dl (70-99)
[2025-07-26] MEDS: NSS IV (14:39)
--- NOTE | 2025-07-26 14:41 | PTCARENOTE ---
LUE CLARENCE bandage removed. b/l LE CLARENCE bandages removed, L upper leg hematoma x3- above knee, medial thigh and upper thigh. ecchymotic. WARBLE SAW OPERATOR at bedside to assess. pt states not painful unless touched. per WARBLE SAW OPERATOR, left upper leg rewrapped in CLARENCE bandage.
+distal pulse. pt OOB to chair w/ assist. pt states no urge to void at present time.
--- NOTE | 2025-07-26 15:14 | CM ---
Reviewed chart. Met with Mr. Echavarria to review discharge plans. He states he is feeling okay. He states prior to admission he resides alone in an apartment with one step to enter. He states his sister resides across the street from him and she
would like him to stay with her for a shirt period of time. Prior to admission he was independent with ambulation and adls. He does not have any DME in the home. He has a prescription plan and uses [facility].. Medical work-up in progress
Telephone call to his sister, Miss Echavarria, ([phone]) to get her address. The address is [address] [address]. The discharge plan is to go home with his sister and a home visit by the Transitional Care Nurse when medically
stable.
[2025-07-26] MEDS: ANESTHETIC LOZENGE 1 LOZENGE PO (15:38)
[2025-07-26] MEDS: LASIX 40 MG IV (15:38)
--- NOTE | 2025-07-26 16:00 | PTCARENOTE ---
pt VSS, no changes in assessment. no c/o pain. IS encouraged. IV lasix given as ordered.
[2025-07-26 16:17] LABS: Glucose - Point of Care 189 mg/dl (70-99)
[2025-07-26] MEDS: NOVOLOG FLEXPEN 4 UNITS SC (17:24)
[2025-07-26 17:27] LABS: Glucose - Point of Care 152 mg/dl (70-99)
[2025-07-26 19:00] LABS: Glucose - Point of Care 104 mg/dl (70-99)
--- NOTE | 2025-07-26 19:00 | PTCARENOTE ---
Patient received from RN @ 1900. Patient sitting in chair w/ call larose in reach. AOx3. Patient states they have difficulty seeing. SR on monitor. BP 100/62 HR 76. Heart sounds audible w/ rub. Insulated V-wires x2. Right radial and pedal
pulses present on palpation. Left ulnar pulse present w/ Doppler. Trace edema noted. POX 100% RA. Bilateral lungs diminished in bases. IS 1250. Occasional productive cough noted. R/L pleural and 2x mediastinal CT set to -20 suction draining
red fluid. No crepitus, tidaling, or air leaks noted. Bowel sounds hypoactive. Voiding clear yellow urine. Left radial puncture and incision well approximated [place]. Right and left groin punctures well approximated HOME DECORATOR. Left upper leg shanel wrap
dry and intact. Left upper leg hematoma and ecchymosis noted w/ slight tenderness to palpation. Right and left knee incisions well approximated HOME DECORATOR. Sternal dressing dry and intact. CT dressing dry and intact. RIJ cordis and Right PIV patent
and intact. Insulin infusing per protocol.
--- NOTE | 2025-07-26 19:02 | PTCARENOTE ---
pt voiding in urinal, PUBLIC INFORMATION SPECIALIST aware of output. PVR 0ml.
[2025-07-26] MEDS: REMOVE LIDOCAINE PATCH 1 PATCH REMOVE (19:43)
[2025-07-26] MEDS: CRESTOR 20 MG PO (21:08)
[2025-07-26 21:15] LABS: Glucose - Point of Care 111 mg/dl (70-99)
--- NOTE | 2025-07-26 23:30 | PTCARENOTE ---
Addendum entered by Sean Serna RN 07/26/25 23:43:
4oz fruit juice given per CT RADHA Mariano.
Original Note:
Patient reassessed. Blood sugar 55. Insulin drip stopped. hypoglycemic protocol followed. CT RADHA Mariano notified. See worklist for more details.
[2025-07-26 23:52] LABS: Glucose - Point of Care 55 mg/dl (70-99)
[2025-07-26 23:52] LABS: Glucose - Point of Care 71 mg/dl (70-99)
[2025-07-27] VITALS (23 sets, daily range): BP systolic 97–162; BP diastolic 63–86; BMI 26.3
[2025-07-27 01:02] LABS: Glucose - Point of Care 112 mg/dl (70-99)
[2025-07-27 02:06] LABS: Glucose - Point of Care 95 mg/dl (70-99)
[2025-07-27] MEDS: ROXICODONE 2.5 MG PO (02:12)
[2025-07-27 03:04] LABS: Glucose - Point of Care 98 mg/dl (70-99)
--- NOTE | 2025-07-27 03:25 | PTCARENOTE ---
Patient reassessed. SR on monitor. VSS. Labs obtained. See MAR for pain management.
[2025-07-27 03:44] LABS: Hematocrit 21.9 % (39.0-52.0); Hemoglobin 7.7 g/dL (13.0-18.0); Mean Corp Hgb Conc. 35.2 g/dL (33.0-37.0); Mean Corpuscular Volume 89.4 fL (80.0-94.0); Platelet Count 95 10^3/uL (130-400); Red Cell Dist. Width 13.8 % (11.5-14.5)
[2025-07-27 03:59] LABS: Glucose - Point of Care 98 mg/dl (70-99)
[2025-07-27 04:04] LABS: Blood Urea Nitrogen 25 mg/dl (9-20); Calcium 8.3 mg/dl (8.4-10.2); Carbon Dioxide 26 mmol/L (22-30); Chloride 103 mmol/L (98-107); Estimated Creatinine Clearance 55 ml/min; Glucose 84 mg/dl (70-99); Magnesium 2.2 mg/dl (1.6-2.3); Potassium 4.4 mmol/L (3.5-5.1); Sodium 133 mmol/L (135-145); eGFR > 60.00
--- NOTE | 2025-07-27 04:10 | PTCARENOTE ---
Low urine output. Bladder scan 338mL. CT PA García brown.
--- NOTE | 2025-07-27 05:39 | W.PN.CT ---
Today's Communication / Plan
-
-pod #2
-no issues overnight, in nsr 60s
-drips: insulin
-s/p 1 pRBC on 07/26 for symptomatic anemia (Hg 8.2 with dizziness). Hg today 7.7- ? 1pRBC
-Cr is 1.2 today (1.0 on 07/26 and preop)
-follow platelets - 95K today (120K on 07/26)
-CT outputs: 2 meds 60/225, 2 pleur 20/300 in 12/24 hrs
-wt is up from 155 preop, if accurate, to 162 on 07/26
-got 40 iv Lasix on 07/26 with no significant response- continue
-current meds (ASA, Plavix, Crestor, Colchicine, Lopressor, Amio tid, Protonix)
-encourage IS, OOB
Assessment / Plan
-
Assessment:
-S/P Median sternotomy/ CABG x 4 (GRISEL to LAD, GSV to D1, RA to OM1, GSV to RPLB)/ Endoscopic harvest of L RA/ Endoscopic harvest of RLE GSV/Endoscopic harvest of LLE GSV/ ELAA (35mm AtriClip)/CPB and cardioplegic arrest re-established w/ takedown
of RA graft w/ redo anastomosis to OM1 w/ GSV and subsequent pqda-bf-nqvo anastomosis off graft to D1, by Dr. Alfaro, 07/25/25, pod#2
-Severe 3v CAD
-Mild-moderate
-Trace AI
-LVEF 60-65% per intraop MANNY
-HTN
-Hyperlipidemia
-T2DM (hgb A1C 7.1)
-Hypothyroidism
-Chronic RBBB
-Hyponatremia, 130
-Tobacco use (quite 1 week ago)
-S/P R elbow repair
-S/P L shoulder repair
-Acute postop blood loss/Anemia (transfused 2u PRBC)
-Acute postop thrombocytopenia (stable without active bleed)
-Acute postop atelectasis
-Acute postop hypovolemia with subsequent hypervolemia
-Acute postop bradycardia
Discussed patient care with: Nursing and Care Team
Subjective
Procedure
S/P Median sternotomy/ CABG x 4 (GRISEL to LAD, GSV to D1, RA to OM1, GSV to RPLB)/ Endoscopic harvest of L RA/ Endoscopic harvest of RLE GSV/Endoscopic harvest of LLE GSV/ ELAA (35mm AtriClip)/CPB and cardioplegic arrest re-established w/ takedown of
RA graft w/ redo anastomosis to OM1 w/ GSV and subsequent ztvw-ro-nqaj anastomosis off graft to D1, by Dr. Alfaro, 07/25/25
-
Date of Service: July 27, 2025
Objective Data
-
PT 17.0 Sec (11.4-14.6) H 07/26/25 05:50
INR 1.36 07/26/25 05:50
APTT 28.0 Sec (23.4-35.0) 07/25/25 16:15
Vital Signs
Vital Signs
Temp Pulse Resp BP Pulse Ox
98.3 F 67 16 101/65 100
07/27/25 02:53 07/27/25 03:00 07/27/25 02:00 07/27/25 03:00 07/27/25 03:00
CT Intake/Output/Weight
07/26/25 07/26/25 07/27/25
06:59 18:59 06:59
Intake Total 748.1 / 1387.9 1374.1 / 1466.9 92.8 / 1466.9
Output Total 1290 / 1890 855 / 925 70 / 925
Balance -541.9 / -502.1 519.1 / 541.9 22.8 / 541.9
SaO2: 100
Physical Exam
-
General: Awake
Cardiovascular: Regular rate & rhythm, No Murmurs and No Rub
Respiratory: Decreased Breath Sounds
Sternum: Stable
Incision: Clean, Dry and Intact
Extremities: No Edema
Abdomen: soft, nontender, nondistended, + bowel sounds
Data Reviewed
-
Lab Results: Results Reviewed
Medications: Active Meds Reviewed
Chest X-Ray: Report Reviewed and Image Reviewed
ECG: Report Reviewed and Image Reviewed
[2025-07-27 06:11] LABS: Glucose - Point of Care 79 mg/dl (70-99)
[2025-07-27] MEDS: SYNTHROID 75 MCG PO (06:25)
[2025-07-27] MEDS: TYLENOL 975 MG PO ×3 (06:26→20:27)
[2025-07-27 07:08] LABS: Glucose - Point of Care 112 mg/dl (70-99)
--- NOTE | 2025-07-27 07:48 | PN.DE.MGMTRT ---
Insulin Management
- -
07/27/2025: Diabetes Management Follow up
Patient admitted 07/25 for OR for CABG x 4. PMH angina, R BBB, diabetes, HTN, CAD, R coronary artery occlusion. Prior to admission was taking Xigduo 03/1000 BID for diabetes. States he has had diabetes 4 years, follows with endocrine. He states he
has a meter but really doesn't test.
A1C on admission 7.1%, cr 1, eGFR > 60.
Patient is awake, alert, oriented, sitting up in chair, offers no complaints, able to discuss diabetes plan of care.
POD #2 s/p CABG. Currently receiving critical care glycemic protocol @ 0.1 to 1.2 units of insulin per hour, glucose range 79 to 112.
Will continue insulin infusion and transition to Farxiga and metformin this afternoon.
Discussed with nurse. Will cont to follow
Diabetes History
- -
Type of Diabetes: 2
Pre-Admission Diabetes Regimen
07/27/25
03:09
Creatinine 1.2
Lab Results
Hemoglobin A1c 7.1 % (4.0-5.6) H 07/14/25 08:50
Insulin Pump Settings
IP Diabetes Regimen
07/26/25 07/26/25 07/26/25
07:59 10:11 12:02
Glucose
POC Glucose 127 H 92 94
07/26/25 07/26/25 07/26/25
13:59 16:16 17:26
Glucose
POC Glucose 105 H 189 H 152 H
07/26/25 07/26/25 07/26/25
18:58 21:13 23:21
Glucose
POC Glucose 104 H 111 H 55 L*
07/26/25 07/27/25 07/27/25
23:47 01:00 02:05
Glucose
POC Glucose 71 112 H 95
07/27/25 07/27/25 07/27/25
03:03 03:09 03:57
Glucose 84
POC Glucose 98 98
07/27/25 07/27/25
06:09 07:07
Glucose
POC Glucose 79 112 H
Meal type: Breakfast
Amount consumed: 100%
Patient Education
--- NOTE | 2025-07-27 08:19 | W.PN.INTV ---
Today's Communication / Plan
Recommendations
Continue insulin drip with goal BG 110�140, weaning off insulin drip as per protocol
Pain control
Up OOB as tolerated
Removal of chest tubes later this AM per CT surgery team
Maintain SpO2 >90-94%
Trend H/H, transfusion to keep Hb >7-8 g/dL
Patient will be downgraded to CVICU�telemetry status today. Once transferred to CVICU�telemetry status, then Heading Up Machine Operator/Pulmonary service will sign off at that time. Please contact pulmonary service if there are any additional questions or
concerns, and thank you for allowing us to be involved in the care of this patient.
Assessment
-
Assessment: 69-year-old male with a past medical history of CAD, RBBB, DM type II and hypertension who presents for elective CABG. Patient known to the cardiothoracic surgery service with last visit on 07/12/[address] Alfaro. Patient's been
experiencing increased shortness of breath with chest heaviness on exertion and easy fatigability. Patient has known CAD with prior abnormal PET/CT myocardial stress test with subsequent cardiac catheterization showed CAD and was treated medically
initially. He had a repeat cardiac cath in June 2025 which showed progression of his multivessel CAD. Patient then referred to CT surgery here at . Surgical revascularization was discussed with the patient and the patient consented to this.
Today, patient underwent CABG x 4, GSV to OM1 with vein�to�vein anastomosis to graft to D1 and left atrial appendage exclusion with a 35 mm AtriClip. Patient tolerated the procedure well. Patient transferred to the CVICU for further care and
county director services consulted for additional management/recommendations.
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
Impression:
#Multivessel CAD s/p CABG x 4 with takedown of RA to OM bypass due to poor radial artery flow with subsequent GSV to OM1 with vein�to�vein anastomosis to graft to D1 (POD #2)
#Acute anemia due to above
#Acute thrombocytopenia due to above
#Hypocalcemia
#Hypertension
#DM type II
#RBBB
Plan:
Patient was successfully extubated 2 nights ago and is now on room air breathing comfortably
Maintain SpO2 >90-94%
prn nebulized bronchodilators - not currently bronchospastic
Encourage IS use q1hr while awake
Pressors/antihypertensive/inotropes/diuretics will be provided as needed
Maintain MAP>65
Replete electrolytes with K>4, Mg>2
Monitor chest tube output (bilateral pleural chest tubes + mediastinal chest tubes x 2 - all to be removed later this AM)
Monitor hemoglobin
Monitor platelet count and coags
Transfuse blood products as needed to maintain Hb>7g/dL, plt>50k (given post-operative status)
CT surgery managing chest tubes
Monitor blood sugar to maintain euglycemia with goal BG 110-140
Insulin drip per protocol - to be weaned off today
Aspiration precautions
DVT prophylaxis
Early nutrition
Early mobilization
Patient will be downgraded to CVICU�telemetry status today. Once transferred to CVICU�telemetry status, then Heading Up Machine Operator/Pulmonary service will sign off at that time. Please contact pulmonary service if there are any additional questions or
concerns, and thank you for allowing us to be involved in the care of this patient.
Total time spent today was 57 minutes for this encounter. Time includes reviewing laboratory test/imaging results, reviewing pertinent medical records, obtaining and reviewing medical history, performing an appropriate exam, ordering medications,
tests and procedures. Time also includes documentation of this encounter, coordinating patient care and communicating with other healthcare professionals. Total time does not include separately billed tests performed on this date of service.
Subjective Dataa
Subjective Data
Date of Service:
Date of Service: July 27, 2025
Chief Complaint: Heading Up Machine Operator Follow Up
Subjective:
Patient was seen and evaluated today at bedside. Currently on insulin drip at 1.5 units/h. Afebrile overnight. On room air breathing comfortably. Currently has no complaints.
Review of Systems
General: Other (Negative unless mentioned above)
Objective Data
Data Reviewed
Vital Signs / I&O / Oxygen:
Vital Signs
Temp Pulse Resp BP Pulse Ox
99.1 F 69 16 131/73 98
07/27/25 09:00 07/27/25 09:30 07/27/25 09:00 07/27/25 09:00 07/27/25 09:00
Intake and Output
07/26/25 07/27/25 07/28/25
06:59 06:59 06:59
Intake Total 1377.6 / 1387.9 1498.6 / 1509.8 23.5 / 23.5
Output Total 1890 / 1890 1265 / 1290
Balance -512.4 / -502.1 233.6 / 219.8 -1.5 / -1.5
SaO2 [CPAP] 100
SaO2 [SIMV] 100
SaO2 98
Nasal Cannula flow liters per 2
minute
Physical Exam
General: Respiratory Distress (negative) and Comfortable
HEENT: Normocephalic, Anicteric and Other (R-IJ cordis)
Cardiovascular: S1-S2, Murmur (MANI heard across anterior precordium), Rub (Positive) and Peripheral Edema (negative)
Respiratory: Wheeze (negative), Crackles (negative), Rhonchi (negative) and Non-Labored Respirations
GI: Soft, Non Distended, Non Tender and Normal Bowel Sounds
Neurology: Awake, Alert, Oriented and Tremors (negative)
Skin: Warm, Dry, Cyanosis (negative) and Jaundice (negative)
Labs/Micro/Reports
Lab Data
07/27/25 03:09
07/27/25 03:09
Microbiology
07/25/25 07:15 Urine Urine Culture - Final
NO GROWTH
[2025-07-27 09:00] LABS: Glucose - Point of Care 113 mg/dl (70-99)
[2025-07-27] MEDS: PLAVIX 75 MG PO (09:02)
[2025-07-27] MEDS: LOPRESSOR 12.5 MG PO (09:02)
[2025-07-27] MEDS: PROTONIX 40 MG PO (09:02)
[2025-07-27] MEDS: VITAMIN C 500 MG PO (09:02)
[2025-07-27] MEDS: COLCHICINE 0.3 MG PO (09:02)
[2025-07-27] MEDS: LOW STRENGTH ASPIRIN 81 MG PO (09:02)
[2025-07-27] MEDS: FEOSOL 325 MG PO (09:03)
[2025-07-27] MEDS: PACERONE 200 MG PO ×3 (09:03→21:31)
[2025-07-27] MEDS: LIDOCAINE 4% PATCH 1 PATCH TOPICAL (09:03)
[2025-07-27] MEDS: NEURONTIN 100 MG PO ×3 (09:03→21:31)
[2025-07-27] MEDS: SENOKOT 8.6 MG PO ×2 (09:03→20:18)
[2025-07-27] MEDS: NOVOLOG FLEXPEN SC ×2 (09:04→13:34)
[2025-07-27] MEDS: BACTROBAN 2% OINTMENT 1 APPLIC NASAL ×2 (09:04→21:30)
--- NOTE | 2025-07-27 09:54 | PTCARENOTE ---
assumed care of pt from previous shift RN, sinus rhythm on tele, V wires insulated, + peripheral pulses, no edema noted. Lungs diminished, pox 98-100% on RA, coughing and deep breathing encouraged. +bs, tolerating PO intake. Surgical sites stable.
Right IJ cordis and PIV flush easily. CT x2 w minimal amount of drainage. Plan of care reviewed and questions encouraged.
--- NOTE | 2025-07-27 10:32 | W.PN.CD ---
Today's Communication / Plan
-
Getting 1 unit PRBCs today.
Monitor for volume overload. Looks euvolemic for now.
Impression / Plan
-
I/P: 69M with HTN, dyslipidemia, type 2 diabetes mellitus, former smoker, and CAD presents for CABG. An abnormal PET/CT in 10/2023 showed basal/mid inferior ischemia and reduced coronary flow reserve. He then had a cardiac cath in November without
intervention done at that time. He was being medically managed by his primary gift wrapper where he had LEVIN and chest discomfort prompting another cardiac catheterization prompting CT surgery evaluation.
Primary gift wrapper: Dr. Ramos�
CAD s/p CABG x 4 (GRISEL to LAD, GSV to D1, RA to OM1, GSV to RPLB) on 07/25/[address] Alfaro
- Post MANNY LVEF 65-70% without regional wall motion abnormality
- EKG stable in sinus rhythm, maintaining sinus on telemetry
- Continue routine postoperative care per CT surgery
- Continue aspirin, Plavix, statin, and metoprolol
Anemia
- S/p 1 unit PRBCs on 07/26 without appropriate bump. Plan for additional 1 unit PRBCs today
- Likely postoperative oozing. Hemodynamically stable and no overt signs of bleeding.
- Continue to follow
HTN, stable, follow
Hypercholesterolemia, goal LDL <55, continue rosuvastatin 20 mg
RBBB
Type 2 diabetes mellitus, HgbA1c 7.1%
Former smoker, quit within the last 30 days, continued cessation recommended
Subjective: Patient feels well. Complaining of mild chest discomfort. Stable from yesterday. Left hand numbness has improved. He denies overt bleeding.
Telemetry: 1 short run of AIVR
Physical Exam
Vital Signs/Labs
Vital Signs
Temp Pulse Resp BP Pulse Ox
99.1 F 77 16 141/76 100
07/27/25 09:00 07/27/25 10:00 07/27/25 10:00 07/27/25 10:00 07/27/25 10:02
07/26/25 07/27/25 07/28/25
06:59 06:59 06:59
Actual Weight 162 lb 4.163 oz 167 lb 12.348 oz
07/27/25 03:09
07/27/25 03:09
PT 17.0 Sec (11.4-14.6) H 07/26/25 05:50
INR 1.36 07/26/25 05:50
APTT 28.0 Sec (23.4-35.0) 07/25/25 16:15
Magnesium 2.2 mg/dl (1.6-2.3) 07/27/25 03:09
Physical Exam
Constitutional: No acute distress and Comfortable
Cardiovascular: Rhythm & rate is regular, Pedal edema is absent, S1S2 is normal and Murmur/rub/gallop absent
Respiratory: Respiratory effort normal and Crackles Present
Neuro/Psych: AO x 3
Data Reviewed
-
Date of Service: July 27, 2025
Medical Decision Making: Reviewed Test Results, Test Interpretation and Review of Case with other Provider
EKG: Tracing Personally Visualized and interpreted
Echo: Report Reviewed by me
Labs: Labs Reviewed by me
[2025-07-27 10:45] LABS: Glucose - Point of Care 172 mg/dl (70-99)
--- NOTE | 2025-07-27 10:50 | PTCARENOTE ---
CTs removed as ordered. 1 Unit of PRBC transfusing as ordered.
--- NOTE | 2025-07-27 11:31 | PTCARENOTE ---
PRBC transfusion completed without incident.
[2025-07-27 13:17] LABS: Glucose - Point of Care 130 mg/dl (70-99)
[2025-07-27] MEDS: FARXIGA 10 MG PO (13:37)
[2025-07-27] MEDS: NSS 500 IV (13:38)
[2025-07-27] MEDS: LASIX 40 MG IV (14:15)
--- NOTE | 2025-07-27 15:48 | PTCARENOTE ---
07/27/2025 DIABETES EDUCATION CONSULTATION
I met with patient to review diabetes management. He states he has had diabetes for approximately 30 years. His HbA1c is 7.1% and he does not monitor his blood sugar at home.
I educated on physiology of T2D, organ damage, managing with medications, monitoring BG, nutrition, activity, sleep and managing stress. I reinforced signs of hyperglycemia, hypoglycemia and hypoglycemia protocol; BS parameters and recommended HbA1c
goals, glucometer and CGM instructions, glucose tracker, medic alert bracelet and outpatient DSME program. Written material provided.
I provided patient with a [employer] Next Gen glucometer sample kit. Provided verbal instructions on proper blood sugar testing technique. He declined demonstration stating that he has checked his blood sugar in the past and the staff just checked
his BS.
Discussed normal target glucose ranges and a monitoring schedule QD.
Encouraged patient to follow up with his PCP for post d/c appointment and to monitor medication and blood glucose levels. Patient verbalized understanding.
[2025-07-27] MEDS: GLUCOPHAGE 1000 MG PO (16:15)
[2025-07-27 17:40] LABS: Glucose - Point of Care 209 mg/dl (70-99)
[2025-07-27] MEDS: NOVOLOG FLEXPEN-LOW RESISTANCE 2 UNITS SC (17:41)
--- NOTE | 2025-07-27 20:00 | PTCARENOTE ---
Assumed care of patient at 1900. Patient found oob in chair at time of assessment. Patient is AOx4, follows commands appropriately, moves all extremities. Lung sounds are clear and equal bilaterally, saO2 99% on RA. Heart sounds are audible, patient
is SR on the monitor, normal palpable R radial, weak but palpable L ulnar, and normal palpable DP pulses. There is +1 edema present in the LUE. Patient has active BS in all four quadrants and is voiding. Patient has sternal incision with aquacell
dressing that is CDI, L radial incision approx with surg adhesive [place] site appears swollen with some erythema around site. Patient has bilateral groin punctures approx with surg adhesive [employer]AND GENERATION MANAGER, LLE incision approx with surg adhesive [employer]AND GENERATION MANAGER ecchymotic
black around site, RLE incision approx with surg adhesive [employer]AND GENERATION MANAGER ecchymotic black around site. Patient has R IJ cordis receiving KVO and 20G R FA PIV. VSS. Call larose within reach.
[2025-07-27] MEDS: REMOVE LIDOCAINE PATCH 1 PATCH REMOVE (20:28)
[2025-07-27] MEDS: LOPRESSOR PO ×2 (20:35→21:54)
[2025-07-27] MEDS: CRESTOR 20 MG PO (21:30)
[2025-07-27] MEDS: LOPRESSOR 25 MG PO (21:30)
[2025-07-27 21:38] LABS: Glucose - Point of Care 213 mg/dl (70-99)
[2025-07-28] VITALS (8 sets, daily range): BP systolic 98–157; BP diastolic 62–80; PULSE 87; O2SAT 100; BMI 26.2
--- NOTE | 2025-07-28 | PTCARENOTE ---
Addendum entered by Gaston Ho RN 07/28/25 03:34:
12.5 Lopressor dose increased to 25 mg for hypertension at 2100
Original Note:
Patient reassessed. VSS. Remains SR on the monitor. Call larose within reach.
[2025-07-28 04:35] LABS: Hematocrit 25.4 % (39.0-52.0); Hemoglobin 9.3 g/dL (13.0-18.0); Mean Corp Hgb Conc. 36.6 g/dL (33.0-37.0); Mean Corpuscular Volume 87.6 fL (80.0-94.0); Platelet Count 102 10^3/uL (130-400); Red Cell Dist. Width 14.4 % (11.5-14.5)
[2025-07-28 04:58] LABS: Blood Urea Nitrogen 25 mg/dl (9-20); Calcium 8.5 mg/dl (8.4-10.2); Carbon Dioxide 27 mmol/L (22-30); Chloride 101 mmol/L (98-107); Estimated Creatinine Clearance 66 ml/min; Glucose 143 mg/dl (70-99); Magnesium 2.0 mg/dl (1.6-2.3); Potassium 4.6 mmol/L (3.5-5.1); Sodium 132 mmol/L (135-145); eGFR > 60.00
[2025-07-28] MEDS: TYLENOL 975 MG PO ×3 (05:55→21:21)
[2025-07-28] MEDS: SYNTHROID 75 MCG PO (05:56)
--- NOTE | 2025-07-28 06:00 | PTCARENOTE ---
Patient reassessed. VSS. Warm compress applied to L arm for tenderness which patient reported gave relief. AM hygiene care provided. OOB to chair. Remains SR on the monitor.
[2025-07-28 07:55] LABS: Glucose - Point of Care 173 mg/dl (70-99)
[2025-07-28] MEDS: FARXIGA 10 MG PO (08:05)
[2025-07-28] MEDS: PROTONIX 40 MG PO (08:05)
[2025-07-28] MEDS: GLUCOPHAGE 1000 MG PO ×2 (08:05→16:30)
[2025-07-28] MEDS: PLAVIX 75 MG PO (08:06)
[2025-07-28] MEDS: LOW STRENGTH ASPIRIN 81 MG PO (08:06)
[2025-07-28] MEDS: COLCHICINE 0.3 MG PO (08:06)
[2025-07-28] MEDS: NEURONTIN 100 MG PO ×3 (08:06→21:21)
[2025-07-28] MEDS: PACERONE 200 MG PO ×3 (08:06→21:22)
[2025-07-28] MEDS: SENOKOT 8.6 MG PO ×2 (08:06→20:10)
[2025-07-28] MEDS: FEOSOL 325 MG PO (08:06)
[2025-07-28] MEDS: VITAMIN C 500 MG PO (08:06)
[2025-07-28] MEDS: NOVOLOG FLEXPEN-LOW RESISTANCE 1 UNITS SC ×2 (08:07→13:55)
[2025-07-28] MEDS: LIDOCAINE 4% PATCH TOPICAL (08:07)
[2025-07-28] MEDS: BACTROBAN 2% OINTMENT 1 APPLIC NASAL ×2 (08:07→20:10)
--- NOTE | 2025-07-28 08:12 | W.PN.CT ---
Today's Communication / Plan
-
-pod #3
-no significant issues overnigt
-c/o L forearm pain (site of radial artery harvest). There is a small hematoma just distal to the elbow, tender with touch, soft. Full ROM at the hand, intact sensation, 2+ radial pulse, good capillary refill. No sign of infection (cdi incision, no
redness or heat)
-encouraged pt to use L arm more and continue warm compresses, which make him feel better
-Cr improved - 1.0 today (1.2 on 07/27 and 1.0 preop)
-Platelets improving - 102K today - follow
-diuresed with 40 iv Lasix on 07/27 - UO 1000/3050 in 24 hrs
-encourage IS, OOB
Assessment / Plan
-
Assessment:
-S/P Median sternotomy/ CABG x 4 (GRISEL to LAD, GSV to D1, RA to OM1, GSV to RPLB)/ Endoscopic harvest of L RA/ Endoscopic harvest of RLE GSV/Endoscopic harvest of LLE GSV/ ELAA (35mm AtriClip)/CPB and cardioplegic arrest re-established w/ takedown
of RA graft w/ redo anastomosis to OM1 w/ GSV and subsequent [id number]-xu-[id number] anastomosis off graft to D1, by Dr. Alfaro, 07/25/25, pod#3
-Severe 3v CAD
-Mild-moderate
-Trace AI
-LVEF 60-65% per intraop MANNY
-HTN
-Hyperlipidemia
-T2DM (hgb A1C 7.1)
-Hypothyroidism
-Chronic RBBB
-Hyponatremia, 130
-Tobacco use (quite 1 week ago)
-S/P R elbow repair
-S/P L shoulder repair
-Acute postop blood loss/Anemia (transfused 2u PRBC)
-Acute postop thrombocytopenia (stable without active bleed)
-Acute postop atelectasis
-Acute postop hypovolemia with subsequent hypervolemia
-Acute postop bradycardia
Discussed patient care with: Nursing and Care Team
Subjective
Procedure
S/P Median sternotomy/ CABG x 4 (GRISEL to LAD, GSV to D1, RA to OM1, GSV to RPLB)/ Endoscopic harvest of L RA/ Endoscopic harvest of RLE GSV/Endoscopic harvest of LLE GSV/ ELAA (35mm AtriClip)/CPB and cardioplegic arrest re-established w/ takedown of
RA graft w/ redo anastomosis to OM1 w/ GSV and subsequent [id number]-bt-[id number] anastomosis off graft to D1, by Dr. Alfaro, 07/25/25
-
Date of Service: July 28, 2025
Objective Data
-
Lab Results
07/28/25 04:01
07/28/25 04:01
PT 17.0 Sec (11.4-14.6) H 07/26/25 05:50
INR 1.36 07/26/25 05:50
APTT 28.0 Sec (23.4-35.0) 07/25/25 16:15
Vital Signs
Vital Signs
Temp Pulse Resp BP Pulse Ox
99 F 65 18 149/80 97
07/28/25 08:00 07/28/25 08:00 07/28/25 08:00 07/28/25 07:53 07/28/25 08:00
CT Intake/Output/Weight
07/27/25 07/28/25 07/28/25
18:59 06:59 18:59
Intake Total 318.8 / 318.8
Output Total 2074 / 5 1000 / 3075
Balance -1756.2 / -2756.2 -1000 / -2756.2
SaO2: 97
Physical Exam
-
General: Awake and AOx3
Cardiovascular: Regular rate & rhythm, No Murmurs and No Rub
Respiratory: Decreased Breath Sounds
Sternum: Stable
Incision: Clean, Dry and Intact
Extremities: No Edema
Data Reviewed
-
Lab Results: Results Reviewed
Medications: Active Meds Reviewed
Chest X-Ray: Report Reviewed and Image Reviewed
ECG: Report Reviewed and Image Reviewed
--- NOTE | 2025-07-28 08:40 | PN.DE.MGMTRT ---
Insulin Management
- -
07/28/2025: Diabetes Management Follow up
Patient admitted 07/25 for OR for CABG x 4. PMH angina, R BBB, diabetes, HTN, CAD, R coronary artery occlusion. Prior to admission was taking Xigduo 03/1000 BID for diabetes. States he has had diabetes 4 years, follows with endocrine. He states he
has a meter but really doesn't test.
A1C on admission 7.1%, cr 1, eGFR > 60.
Patient is awake, alert, oriented, sitting up in chair, offers no complaints, able to discuss diabetes plan of care.
POD # 3 s/p CABG. Transitioned off critical care glycemic protocol yesterday to oral regimen.
Glucose 130 to 209 after d/c of insulin infusion. HS glucose up to 213, fasting 143 V, 173 POC this AM.
Will continue Farxiga 10mg daily and Metformin 1000 mg BID with low corrective insulin.
Discussed with pt about adding another oral agent if glucose remains >180 and he was agreeable.
Discussed with nurse. Will closely monitor glucose trend.
Diabetes History
- -
Type of Diabetes: 2
Pre-Admission Diabetes Regimen
07/28/25
04:01
Creatinine 1.0
Lab Results
Hemoglobin A1c 7.1 % (4.0-5.6) H 07/14/25 08:50
Insulin Pump Settings
IP Diabetes Regimen
07/27/25 07/27/25 07/27/25
08:58 10:44 13:15
Glucose
POC Glucose 113 H 172 H 130 H
07/27/25 07/27/25 07/28/25
17:39 21:37 04:01
Glucose 143 H
POC Glucose 209 H 213 H
07/28/25
07:53
Glucose
POC Glucose 173 H
Meal type: Breakfast
Amount consumed: 100%
Patient Education
[2025-07-28] MEDS: TOPROL XL 50 MG PO (08:45)
[2025-07-28] MEDS: LASIX 40 MG IV (08:45)
[2025-07-28] MEDS: COZAAR 25 MG PO (08:45)
[2025-07-28] MEDS: LOPRESSOR PO (08:47)
--- NOTE | 2025-07-28 08:53 | PTCARENOTE ---
Received pt from jackscrew worker RN at 0700; pt AAOx3 and ambulating in room/hallways; NSR RBBB on monitor and VSS; Epicardial V wire x2 insulted; RIJ Cordis and PIV x1 patent; lungs diminished; IS to 1000; positive bowel sounds; pt voiding yellow
urine; palpable pulses throughout; Trace edema in left upper arm; all surgical sites C/D/I; see nursing documentation for further details.
--- NOTE | 2025-07-28 09:40 | W.PN.CD ---
Today's Communication / Plan
-
PAF - appears to have rate controlled afib.
asymptomatic
- continue amiodarone and BB
Impression / Plan
-
I/P: 69M with HTN, dyslipidemia, type 2 diabetes mellitus, former smoker, and CAD presents for CABG. An abnormal PET/CT in 10/2023 showed basal/mid inferior ischemia and reduced coronary flow reserve. He then had a cardiac cath in November without
intervention done at that time. He was being medically managed by his primary therapy manager where he had LEVIN and chest discomfort prompting another cardiac catheterization prompting CT surgery evaluation.
Primary therapy manager: Dr. Ramos�
CAD s/p CABG x 4 (GRISEL to LAD, GSV to D1, RA to OM1, GSV to RPLB) on 07/25/[address] Alfaro
- Post MANNY LVEF 65-70% without regional wall motion abnormality
- Continue aspirin, Plavix, statin, and metoprolol
PAF - appears to have rate controlled afib.
asymptomatic
- continue amiodarone and BB
Anemia
- S/p PRBC. Hb up to 9.3 from 7.7. Monitor
HTN, stable, follow
Hypercholesterolemia, goal LDL <55, continue rosuvastatin 20 mg
RBBB
Type 2 diabetes mellitus, HgbA1c 7.1%
Former smoker, quit within the last 30 days, continued cessation recommended
Subjective: Patient feels well. Complaining of mild chest discomfort. Stable from yesterday. Left hand numbness has improved. He denies overt bleeding.
Telemetry: 1 short run of AIVR
Physical Exam
Vital Signs/Labs
Vital Signs
Temp Pulse Resp BP Pulse Ox
99 F 65 18 149/80 97
07/28/25 08:00 07/28/25 08:00 07/28/25 08:00 07/28/25 07:53 07/28/25 09:07
0907/28/25 07/29/25
06:59 06:59 06:59
Actual Weight 76.1 kg 75.8 kg
07/28/25 04:01
07/28/25 04:01
PT 17.0 Sec (11.4-14.6) H 07/26/25 05:50
INR 1.36 07/26/25 05:50
APTT 28.0 Sec (23.4-35.0) 07/25/25 16:15
Magnesium 2.0 mg/dl (1.6-2.3) 07/28/25 04:01
Physical Exam
Constitutional: No acute distress
Cardiovascular: Rhythm/rate is irregular
Respiratory: Wheeze Absent and Rhonchi Absent
GI: Soft and Non tender
Neuro/Psych: Alert
Data Reviewed
-
Date of Service: July 28, 2025
Medical Decision Making: Reviewed Test Results
EKG: Report Reviewed by me
Echo: Report Reviewed by me
Labs: Labs Reviewed by me
--- NOTE | 2025-07-28 11:24 | PTCARENOTE ---
Assessment unchanged; NSR on monitor and VSS; pt ambulating hallways.
--- NOTE | 2025-07-28 11:25 | PTCARENOTE ---
A-fib on monitor from [id number]; NSR on monitor currently and VSS.
[2025-07-28 13:46] LABS: Glucose - Point of Care 184 mg/dl (70-99)
[2025-07-28 16:18] LABS: Glucose - Point of Care 263 mg/dl (70-99)
--- NOTE | 2025-07-28 17:19 | PTCARENOTE ---
NSR RBBB on monitor and VSS; assessment unchanged and pt resting comfortably in chair.
[2025-07-28] MEDS: NOVOLOG FLEXPEN-LOW RESISTANCE SC (17:41)
[2025-07-28] MEDS: NSS IV (19:24)
--- NOTE | 2025-07-28 20:00 | PTCARENOTE ---
Assumed care of the patient at 1900. Patient OOB to chair, AOx3, pleasant, difficulty seeing items up close at baseline. SR with a RBBB on CM, trace L forearm edema, pulses palpable. Lungs dim at the bases, on RA, IS encouraged. Abdomen SNT,
appetite good. Voiding clear yellow urine into the urinal without difficulty. All surgical sites intact and ecchymotic aside from MSI; which is CDI with Aquacel intact, no ecchymosis appreciated. RIJ cordis intact, CVPA advised to remove in AM;
PIVx1. L arm wrapped with an shanel for comfort. Assessment of needs ongoing, call larose within reach. See nursing worklist for additional intervention details.
[2025-07-28] MEDS: REMOVE LIDOCAINE PATCH REMOVE (20:11)
[2025-07-28] MEDS: CRESTOR 20 MG PO (21:21)
[2025-07-28] MEDS: REFRESH EYE DROPS (PF) 1 DROPS OPHTH (21:22)
[2025-07-28 21:36] LABS: Glucose - Point of Care 215 mg/dl (70-99)
[2025-07-28] MEDS: NOVOLOG FLEXPEN 1 UNITS SC (21:51)
[2025-07-29] VITALS (12 sets, daily range): BP systolic 123–173; BP diastolic 69–80; PULSE 63; O2SAT 98–100; BMI 26.0
--- NOTE | 2025-07-29 00:16 | PTCARENOTE ---
No acute changes. Patient sleeping between care, BP improved without intervention. CVPA aware.
[2025-07-29] MEDS: TOPROL XL 50 MG PO (04:26)
--- NOTE | 2025-07-29 04:28 | PTCARENOTE ---
Pt hypertensive, give morning metoprolol early per CVPA. No other issues.
[2025-07-29 04:56] LABS: Hematocrit 25.7 % (39.0-52.0); Hemoglobin 8.8 g/dL (13.0-18.0); Mean Corp Hgb Conc. 34.2 g/dL (33.0-37.0); Mean Corpuscular Volume 89.2 fL (80.0-94.0); Platelet Count 127 10^3/uL (130-400); Red Cell Dist. Width 14.1 % (11.5-14.5)
[2025-07-29 04:58] LABS: Blood Urea Nitrogen 22 mg/dl (9-20); Calcium 8.3 mg/dl (8.4-10.2); Carbon Dioxide 28 mmol/L (22-30); Chloride 99 mmol/L (98-107); Estimated Creatinine Clearance 73 ml/min; Glucose 129 mg/dl (70-99); Magnesium 2.0 mg/dl (1.6-2.3); Potassium 4.6 mmol/L (3.5-5.1); Sodium 131 mmol/L (135-145); eGFR > 60.00
[2025-07-29] MEDS: SYNTHROID 75 MCG PO (05:58)
[2025-07-29] MEDS: TYLENOL 975 MG PO ×3 (05:58→21:44)
--- NOTE | 2025-07-29 07:08 | W.PN.CT ---
Today's Communication / Plan
-
-pod #4
-no significant issues overnight
-high BP
-Cr improved - 0.9 today (1.2 on 07/27 and 1.0 preop)
-Platelets improving - 127K today
-encourage IS, OOB, ambulate
-d/c home on Friday
Assessment / Plan
-
Assessment:
-S/P Median sternotomy/ CABG x 4 (GRISEL to LAD, GSV to D1, RA to OM1, GSV to RPLB)/ Endoscopic harvest of L RA/ Endoscopic harvest of RLE GSV/Endoscopic harvest of LLE GSV/ ELAA (35mm AtriClip)/CPB and cardioplegic arrest re-established w/ takedown
of RA graft w/ redo anastomosis to OM1 w/ GSV and subsequent gnvr-cc-dsdv anastomosis off graft to D1, by Dr. Alfaro, 07/25/25, pod#4
-Severe 3v CAD
-Mild-moderate
-Trace AI
-LVEF 60-65% per intraop MANNY
-HTN
-Hyperlipidemia
-T2DM (hgb A1C 7.1)
-Hypothyroidism
-Chronic RBBB
-Hyponatremia, 130
-Tobacco use (quite 1 week ago)
-S/P R elbow repair
-S/P L shoulder repair
-Acute postop blood loss/Anemia (transfused 2u PRBC)
-Acute postop thrombocytopenia (stable without active bleed)
-Acute postop atelectasis
-Acute postop hypovolemia with subsequent hypervolemia
-Acute postop bradycardia
Discussed patient care with: Nursing and Care Team
Subjective
Procedure
S/P Median sternotomy/ CABG x 4 (GRISEL to LAD, GSV to D1, RA to OM1, GSV to RPLB)/ Endoscopic harvest of L RA/ Endoscopic harvest of RLE GSV/Endoscopic harvest of LLE GSV/ ELAA (35mm AtriClip)/CPB and cardioplegic arrest re-established w/ takedown of
RA graft w/ redo anastomosis to OM1 w/ GSV and subsequent ypbg-ne-zvxn anastomosis off graft to D1, by Dr. Alfaro, 07/25/25
-
Date of Service: July 29, 2025
Objective Data
-
Lab Results
07/29/25 04:10
07/29/25 04:10
PT 17.0 Sec (11.4-14.6) H 07/26/25 05:50
INR 1.36 07/26/25 05:50
APTT 28.0 Sec (23.4-35.0) 07/25/25 16:15
Vital Signs
Vital Signs
Temp Pulse Resp BP Pulse Ox
97.7 F 73 18 141/77 99
07/29/25 04:07 07/29/25 06:00 07/29/25 04:07 07/29/25 05:04 07/29/25 04:07
CT Intake/Output/Weight
07/28/25 07/29/25 07/29/25
18:59 06:59 18:59
Intake Total 960 / 1540 580 / 1540
Output Total 1600 / 3775 2175 / 3775
Balance -640 / -2235 -1595 / -2235
SaO2: 99
Physical Exam
-
General: Awake and AOx3
Cardiovascular: Regular rate & rhythm, No Murmurs and Rub
Respiratory: Decreased Breath Sounds
Sternum: Stable
Incision: Clean, Dry and Intact
Extremities: No Edema
L arm small hematoma - put shanel-wrap and warm compresses
Data Reviewed
-
Lab Results: Results Reviewed
Medications: Active Meds Reviewed
Chest X-Ray: Report Reviewed and Image Reviewed
ECG: Report Reviewed and Image Reviewed
[2025-07-29] MEDS: PROTONIX 40 MG PO (07:48)
[2025-07-29] MEDS: SENOKOT 8.6 MG PO (07:48)
[2025-07-29] MEDS: FARXIGA 10 MG PO (07:48)
[2025-07-29] MEDS: PLAVIX 75 MG PO (07:48)
[2025-07-29] MEDS: COZAAR 50 MG PO (07:49)
[2025-07-29] MEDS: VITAMIN C 500 MG PO (07:49)
[2025-07-29] MEDS: COLCHICINE 0.3 MG PO (07:49)
[2025-07-29] MEDS: PACERONE 200 MG PO ×3 (07:49→21:44)
[2025-07-29] MEDS: FEOSOL 325 MG PO (07:49)
[2025-07-29] MEDS: NEURONTIN 100 MG PO ×3 (07:49→21:44)
[2025-07-29] MEDS: GLUCOPHAGE 1000 MG PO ×2 (07:49→17:52)
[2025-07-29] MEDS: LOW STRENGTH ASPIRIN 81 MG PO (07:49)
[2025-07-29] MEDS: TOPROL XL PO (07:50)
[2025-07-29] MEDS: BACTROBAN 2% OINTMENT 1 APPLIC NASAL (07:50)
[2025-07-29] MEDS: LIDOCAINE 4% PATCH TOPICAL (07:50)
[2025-07-29] MEDS: NOVOLOG FLEXPEN-LOW RESISTANCE SC ×3 (07:55→16:50)
--- NOTE | 2025-07-29 08:00 | PTCARENOTE ---
Assumed care of patient from table games shift manager RN. RAOULO x 3. Sitting up in the chair. C/o Lt arm discomfort. Garret wrap intact. Skin warm and dry. SR w/ BBB on monitor. Epicardial wires insulated. Passing flatus, appetite good. Voiding
independently. Surgical sites well approximated. Pulses palpable. Plan for day discussed.
--- NOTE | 2025-07-29 08:11 | W.PN.CD ---
Today's Communication / Plan
-
Continue diuretics.
Monitor H/H.
Discussion regarding anticoagulation in light of PAF (limited post operative?).
Discharge planning.
Impression / Plan
-
Impression/Plan: 69M with HTN, dyslipidemia, type 2 diabetes mellitus, former smoker, and MVCAD admitted for elective CABG.
Primary wilton weaver: Dr. Ramos�
#CAD
-Chronic, progressive.
-s/p CABG x 4 (GRISEL to LAD, SVG to RPLB, SVG to D1 with SVG Y-graft to OM1) on 07/25/[address] Alfaro.
-Continue routine post operative care.
-Incentive spirometry.
-Ambulate.
-Continue amiodarone, aspirin, clopidogrel, metoprolol and rosuvastatin.
-Continue furosemide as his weight is still up.
#Atrial Fibrillation
-Paroxysmal. Asymptomatic.
-Currently in NSR.
-Rate/rhythm control with metoprolol, amiodarone.
-CHADS2-Vasc = 4 (HTN, Age, DM, vascular disease).
-Primary prevention with LAAE (#35 AtriClip)
-Discussion regarding therapeutic anticoagulation as an outpatient. Currently on hold due to anemia.
#Anemia
-Acute blood loss/post operative.
-Hbg 8.8 today. There is some dilution component.
-Anticoagulation on hold.
-Continue to diurese to improve hemoconcentration.
#HTN
-Chronic, elevated overnight.
-Continue losartan at 50 mg daily (home dose).
#Hypercholesterolemia
-Chronic.
-Continue rosuvastatin 20 mg. Goal LDL < 55.
#Type 2 diabetes mellitus
-Chronic, mildly uncontrolled.
-HgbA1c 7.1%.
-Continue dapagliflozin.
-The patient would benefit from GLP-1 analogs as an outpatient.
#RBBB
#Former smoker, quit within the last 30 days, continued cessation recommended.
Subjective/Interval History:
Hypertensive.
Losartan increased to 50 mg daily.
Weight down 0.6 kg, still up 4.8 kg from baseline.
Hbg down to 8.8.
Platelets up to 127k.
DATA:
Cardiac Catheterization, 06/29/2025:
CONCLUSIONS
1. Right dominant circulation with 90% lesion in the mid RCA followed by total occlusion at the crux, a 60-70% lesion in the ostium of the circumflex, a new 80% lesion in the proximal circumflex immediately proximal to the bifurcation of the AV
groove circumflex and obtuse marginal and an occlusive 60% lesion in the mid LAD (IFR = 0.86).
2. Moderately elevated filling pressures (LVEDP = 22 mmHg at 73.5 kg).
CABG, 07/25/2025:
PROCEDURES:
1. Median sternotomy
2. Takedown of GRISEL (narrow pedicle)
3. Endoscopic harvest of L RA
4. Endoscopic harvest of RLE GSV
5. CABG x 4 (GRISEL to LAD, GSV to D1, RA to OM1, GSV to RPLB)
6. ELAA (35mm AtriClip)
7. Endoscopic harvest of LLE GSV
8. Re-establishment of cardioplegic arrest
9. Takedown of RA to OM bypass
10. GSV to OM1 w/ xigs-od-hiqc anastomosis to graft to D1.
Physical Exam
Vital Signs/Labs
Vital Signs
Temp Pulse Resp BP Pulse Ox
36.9 C 59 18 135/75 100
07/29/25 07:54 07/29/25 07:54 07/29/25 07:54 07/29/25 07:38 07/29/25 07:54
07/27/25 07/28/25 07/29/25
11:59 11:59 11:59
Actual Weight 76.1 kg 75.8 kg 75.2 kg
07/29/25 04:10
07/29/25 04:10
PT 17.0 Sec (11.4-14.6) H 07/26/25 05:50
INR 1.36 07/26/25 05:50
APTT 28.0 Sec (23.4-35.0) 07/25/25 16:15
Magnesium 2.0 mg/dl (1.6-2.3) 07/29/25 04:10
Physical Exam
Constitutional: No acute distress and Comfortable
EENT: Anicteric and Moist mucous membranes
Cardiovascular: Rhythm & rate is regular, Pedal edema is absent, JVD pressure is normal, S1S2 is normal and Murmur/rub/gallop absent
Respiratory: Respiratory effort normal, Lungs clear to auscul., Wheeze Absent, Crackles Absent and Rhonchi Absent
GI: Soft, Distention absent, Flat, Non tender and Normal bowel sounds
Data Reviewed
-
Date of Service: July 29, 2025
Medical Decision Making: Reviewed Test Results, Test Interpretation and Review of Case with other Provider
EKG: Tracing Personally Visualized and interpreted and Report Reviewed by me
Echo: Tracing Personally Visualized and interpreted and Report Reviewed by me
X-Ray/CT/US/MRI/NUC/PET: Image Personally Visualized and interpreted and Report Reviewed by me
Medical Tests (PFT, Pathology etc): Image Personally Visualized and interpreted and Report Reviewed by me
Labs: Labs Reviewed by me
Old Records: Reviewed
--- NOTE | 2025-07-29 08:52 | PN.DE.MGMTRT ---
Insulin Management
- -
07/29/2025: Diabetes Management Follow up
Patient admitted 07/25 for OR for CABG x 4. PMH angina, R BBB, diabetes, HTN, CAD, R coronary artery occlusion. Prior to admission was taking Xigduo 03/1000 BID for diabetes. States he has had diabetes 4 years, follows with endocrine. He states he
has a meter but really doesn't test.
A1C on admission 7.1%, cr 1, eGFR > 60.
Patient is awake, alert, oriented, sitting up in chair, offers no complaints, able to discuss diabetes plan of care.
POD # 4 s/p CABG. Transitioned off critical care glycemic protocol on 07/27 to oral regimen.
Premeal Glucose yesterday 173 to 263, HS glucose up to 215, fasting 129 V.
Discussed with pt adding another oral agent for optimal glucose control and he was agreeable.
Will start glipizide 5mg daily, 1st dose now. Cont Farxiga 10mg daily and Metformin 1000 mg BID with low corrective insulin.
Discussed with nurse. Will closely monitor glucose trend.
Diabetes History
- -
Type of Diabetes: 2
Pre-Admission Diabetes Regimen
07/29/25
04:10
Creatinine 0.9
Lab Results
Hemoglobin A1c 7.1 % (4.0-5.6) H 07/14/25 08:50
Insulin Pump Settings
IP Diabetes Regimen
07/28/25 07/28/25 07/28/25
13:44 16:15 21:34
Glucose
POC Glucose 184 H 263 H 215 H
07/29/25
04:10
Glucose 129 H
POC Glucose
Meal type: Breakfast
Amount consumed: 100%
Patient Education
[2025-07-29] MEDS: LASIX 40 MG IV ×2 (10:26→15:45)
--- NOTE | 2025-07-29 11:34 | PTCARENOTE ---
Ambulating in room and hallway. Denies complaint at present. Able to have a Large BM in toilet w/o issue. VSS. Assessment otherwise unchanged from prior.
--- NOTE | 2025-07-29 11:58 | CM ---
priced elirukhsana with pts pharm- his copay is $44/month
[2025-07-29] MEDS: GLUCOTROL 5 MG PO (13:20)
[2025-07-29] MEDS: ELIQUIS 5 MG PO ×2 (13:20→21:44)
[2025-07-29] MEDS: NSS IV (15:45)
[2025-07-29 15:55] LABS: Glucose - Point of Care 104 mg/dl (70-99)
--- NOTE | 2025-07-29 17:30 | PTCARENOTE ---
Ambulating at [facility] in hallway, sitting down in the waiting room in the sun shine at patient request. VSS. Voiding large amounts of yellow urine. Assessment otherwise unchanged from prior.
--- NOTE | 2025-07-29 20:00 | PTCARENOTE ---
Resumed care of the patient at 1900. Patient OOB to chair, AOx3. SR with a RBBB on CM, pulses palpable. Lungs dim at the bases, RA. Abdomen SNT, appetite improved, BM today. Voiding without difficulty. Surgical sites intact, ecchymotic; MSI CD with
Aquacel intact. PIVx1. L arm wrapped with an shanel for comfort. POC discussed with patient, in agreement, assessment of needs ongoing. See nursing worklist for additional details.
[2025-07-29] MEDS: SENOKOT PO (20:07)
[2025-07-29] MEDS: REMOVE LIDOCAINE PATCH REMOVE (20:07)
[2025-07-29] MEDS: CRESTOR 20 MG PO (21:44)
[2025-07-29 22:58] LABS: Glucose - Point of Care 146 mg/dl (70-99)
[2025-07-30] VITALS (8 sets, daily range): BP systolic 125–166; BP diastolic 66–86; PULSE 65; O2SAT 100; BMI 24.7
--- NOTE | 2025-07-30 | PTCARENOTE ---
Pt complained he felt like his stomach was 'gurgling.' Had a BM on the toilet. Stated he subsequently felt better. VSS. No acute changes, sleeping between care.
--- NOTE | 2025-07-30 04:00 | PTCARENOTE ---
No acute changes, patient attempted to have second BM but did not. Sleeping between care, VSS.
--- NOTE | 2025-07-30 05:12 | W.PN.CT ---
Addendum entered and electronically signed by Chalo Alfaro MD 07/30/25 09:08:
I saw and examined the patient.
The PA's note was reviewed and I agree with the note.
Comment:
POD#5 s/p CABG x 4, ELAA
Doing well.
Home today
- ASA/Elquis for 2 episodes of postop PAF (currently in sinus)
- BB, statin, amio
Original Note:
Today's Communication / Plan
-
-pod #5
-no significant issues overnight
-BP improving on losartan
-Eliquis started
-Platelets improving
-encourage IS, OOB, ambulate
-d/c home, possibly today
Assessment / Plan
-
Assessment:
-S/P Median sternotomy/ CABG x 4 (GRISEL to LAD, GSV to D1, RA to OM1, GSV to RPLB)/ Endoscopic harvest of L RA/ Endoscopic harvest of RLE GSV/Endoscopic harvest of LLE GSV/ ELAA (35mm AtriClip)/CPB and cardioplegic arrest re-established w/ takedown
of RA graft w/ redo anastomosis to OM1 w/ GSV and subsequent [id number]-kv-[id number] anastomosis off graft to D1, by Dr. Alfaro, 07/25/25, pod#5
-Severe 3v CAD
-Mild-moderate
-Trace AI
-LVEF 60-65% per intraop MANNY
-HTN
-Hyperlipidemia
-T2DM (hgb A1C 7.1)
-Hypothyroidism
-Chronic RBBB
-Hyponatremia, 130
-Tobacco use (quite 1 week ago)
-S/P R elbow repair
-S/P L shoulder repair
-Acute postop blood loss/Anemia (transfused 2u PRBC)
-Acute postop thrombocytopenia (stable without active bleed)
-Acute postop atelectasis
-Acute postop hypovolemia with subsequent hypervolemia
-Acute postop bradycardia
Subjective
Procedure
S/P Median sternotomy/ CABG x 4 (GRISEL to LAD, GSV to D1, RA to OM1, GSV to RPLB)/ Endoscopic harvest of L RA/ Endoscopic harvest of RLE GSV/Endoscopic harvest of LLE GSV/ ELAA (35mm AtriClip)/CPB and cardioplegic arrest re-established w/ takedown of
RA graft w/ redo anastomosis to OM1 w/ GSV and subsequent [id number]-[id number] anastomosis off graft to D1, by Dr. Alfaro, 07/25/25
-
Date of Service: July 30, 2025
Objective Data
-
PT 17.0 Sec (11.4-14.6) H 07/26/25 05:50
INR 1.36 07/26/25 05:50
APTT 28.0 Sec (23.4-35.0) 07/25/25 16:15
Vital Signs
Vital Signs
Temp Pulse Resp BP Pulse Ox
98.1 F 63 16 130/67 99
07/30/25 00:05 07/30/25 00:04 07/30/25 00:05 07/30/25 00:04 07/30/25 00:05
CT Intake/Output/Weight
07/29/25 07/29/25 07/30/25
06:59 18:59 06:59
Intake Total 580 / 1540 720 / 720
Output Total 2175 / 3775 1100 / 1100
Balance -1595 / -2235 -380 / -380
SaO2: 99
Physical Exam
-
General: Awake and Oriented
Cardiovascular: Regular rate & rhythm and No Murmurs
Respiratory: Clear
Sternum: Stable
Incision: Clean and Dry
Extremities: No Edema and No Erythema
Data Reviewed
-
Lab Results: Results Reviewed
Medications: Active Meds Reviewed
Chest X-Ray: Report Reviewed
ECG: Report Reviewed
[2025-07-30 05:13] LABS: Hematocrit 27.5 % (39.0-52.0); Hemoglobin 9.5 g/dL (13.0-18.0); Mean Corp Hgb Conc. 34.5 g/dL (33.0-37.0); Mean Corpuscular Volume 89.3 fL (80.0-94.0); Platelet Count 163 10^3/uL (130-400); Red Cell Dist. Width 13.8 % (11.5-14.5)
[2025-07-30 05:23] LABS: Blood Urea Nitrogen 20 mg/dl (9-20); Calcium 8.3 mg/dl (8.4-10.2); Carbon Dioxide 28 mmol/L (22-30); Chloride 98 mmol/L (98-107); Estimated Creatinine Clearance 66 ml/min; Glucose 114 mg/dl (70-99); Potassium 3.9 mmol/L (3.5-5.1); Sodium 132 mmol/L (135-145); eGFR > 60.00
[2025-07-30] MEDS: REFRESH EYE DROPS (PF) 1 DROPS OPHTH (06:30)
[2025-07-30] MEDS: SYNTHROID 75 MCG PO (06:30)
[2025-07-30] MEDS: TYLENOL 975 MG PO (06:30)
--- NOTE | 2025-07-30 06:35 | PTCARENOTE ---
Pt c/o feeling lightheaded upon standing. Gait steady. BP 164/79 - pt states it passed. CVNP aware
--- NOTE | 2025-07-30 08:00 | PTCARENOTE ---
Assumed care of patient from retail shift manager RN, RAOULO x 3. SR with BBB on monitor. Epicardial wires insulated. Room air 100%. Using IS independently. Abdomen soft and nontender, appetite good. Voiding independently. Pulses palpable. LT arm with
trace edema. Less tender today. Pulses palpable. Plan for day discussed.
[2025-07-30] MEDS: NEURONTIN 100 MG PO (08:28)
[2025-07-30] MEDS: COLCHICINE 0.3 MG PO (08:28)
[2025-07-30] MEDS: PROTONIX 40 MG PO (08:28)
[2025-07-30 08:29] LABS: Glucose - Point of Care 126 mg/dl (70-99)
[2025-07-30] MEDS: FARXIGA 10 MG PO (08:29)
[2025-07-30] MEDS: GLUCOPHAGE 1000 MG PO (08:29)
[2025-07-30] MEDS: KCL 40 MEQ PO (08:29)
[2025-07-30] MEDS: GLUCOTROL 5 MG PO (08:29)
[2025-07-30] MEDS: FEOSOL 325 MG PO (08:29)
[2025-07-30] MEDS: TOPROL XL 50 MG PO (08:29)
[2025-07-30] MEDS: NOVOLOG FLEXPEN-LOW RESISTANCE SC ×2 (08:29→12:40)
[2025-07-30] MEDS: LOW STRENGTH ASPIRIN 81 MG PO (08:29)
[2025-07-30] MEDS: PACERONE 200 MG PO (08:29)
[2025-07-30] MEDS: ELIQUIS 5 MG PO (08:29)
[2025-07-30] MEDS: VITAMIN C 500 MG PO (08:29)
[2025-07-30] MEDS: COZAAR 50 MG PO (08:29)
[2025-07-30] MEDS: LIDOCAINE 4% PATCH TOPICAL (08:30)
--- NOTE | 2025-07-30 08:41 | W.DCSUMMARY ---
Discharge Summary
Discharge Data
Date of Admission: 07/25/25
Date of Discharge: 07/30/25
Total time spent discharging patient (in min): 50
-
Pending Results: No
Hospital Course
Primary care physician:
Dr. Tristan Peace
Outpatient milk house worker:
Dr. Noelle Ramos
Inpatient consultants:
CBC, frame stripper and crusher, diabetes management assistant sales director
Procedures:
1. CABG x 4 WILKES-LAD, SVG-D1, SVG-OM-SVG carrera D1, SVG- RPLB, ELAA #35 clip
Primary Diagnosis:
1. Severe multivessel CAD
Secondary Diagnoses:
1. Mild-moderate
2. HTN
3. Hyperlipidemia
4. T2DM (hgb A1C 7.1)
5. Hypothyroidism
6. chronic Hyponatremia
7. Acute postop blood loss/Anemia (transfused 2u PRBC)
8. Acute postop thrombocytopenia (stable without active bleed)
HPI: 69M with HTN, dyslipidemia, type 2 diabetes mellitus, former smoker, and MVCAD admitted for elective CABG.
Hospital course:
Patient was electively admitted on 07/[address] a CABG with Dr. Alfaro. Postoperatively he returned to the CVICU on Levophed, Precedex, and insulin infusions. Patient Precedex was weaned off and he was extubated by 2200. Levophed was weaned off
overnight on 07/26 postoperative day 1 patient was in sinus rhythm and was started on amiodarone and beta-blockers. Nunez catheter was discontinued. Patient was noted to have a hemoglobin of 8.2 and was dizzy and was given 1 unit of packed red
blood cells. He was also started on low-dose colchicine for pericarditis. On 07/27 postoperative day 2 patient's hemoglobin was 7.7 and he was given 1 unit of packed red blood cells chest tubes were discontinued and he was given 40 mg of IV Lasix
with adequate output. He was transitioned from an insulin infusion to his home oral regimen. On 07/28 postoperative day 3, patient had a short episode of rate controlled atrial fibrillation that he converted out of after 2 hours. He was given 40
mg of IV Lasix and patient's Cordis was removed. Patient ambulated well throughout the day. On 07/29 postoperative day 4 patient was given 40 mg of IV Lasix twice daily with amazing output. Due to episodes of paroxysmal atrial fibrillation
postoperatively he was started on Eliquis. Patient's blood pressure continued to improve so his home dose of losartan was resumed. On 07/30 postoperative day 5 patient was given 40 mg of p.o. Lasix and he was deemed stable for discharge home.
Home medication changes:
see below
Discharge Plan
-
Patient Disposition: Home (Routine Discharge)
Discharge Diagnosis/Procedures: CABG x 4, left atrial appendage clip (07/25)
Condition: Good
Diet: Low Cholesterol, Low Sodium and Diabetic, Carb Controlled
Activity: No strenuous activity
Driving Restrictions: Not until seen by your Dr
Bathing Restrictions: OK to Shower
Blood Work: BMP in 1 week
Other Services: Cardiac Rehab
Specialty Instructions: Weigh Daily- Call MD for wt gain/loss 3 lbs overnight/5 lbs in 1 week
Activity Restrictions/Additional Instructions:
ACTIVITY:
-No strenuous activity: no heavy lifting, pushing, pulling anything over 15 pounds for one month
-continue to use stairs as tolerated
DRIVING RESTRICTIONS:
-No driving for one month or until approved by your surgeon
WOUND CARE:
-Shower daily. Use soap & water.
-No lotions, creams or powders on incision area.
DIET:
-continue a low fat/low cholesterol diet.
-IF you are diabetic, continue carb controlled diet.
CARDIAC REHAB:
-Please make appointment to start in 5-6 weeks with your local hospital program. (See Cardiac Rehabilitation Discharge Booklet).
SPECIALTY INSTRUCTIONS:
-Weigh yourself daily. Call your physician for any weight gain/loss of 3 lbs overnight or 5 lbs in one week.
-REPORT any clicking noise or uneven appearance of your sternum to your surgeon immediately.
-If you smoke, you are instructed to quit. The [place] smoking hotline phone number is [phone]
Referrals:
CT Transitional Care Nurse [Outside] - in one to two days
Referral Note:
The Cardiothoracic Transitional Care Nurse will call you to set up a visit in 1-2 days.
Argenis Butler CRNP [Non-Admitting Privileges, Cardiology] - 09/06/25 9:30 am
Tristan Peace MD [Family Provider, Internal Medicine] - in four to six weeks
Referral Note: Please make an apoointment in four to six weeks.
Chalo Alfaro MD [Active, Cardiac Surgery] - 08/23/25 1:30 pm
Additional Discharge Medication Instructions: please take amiodarone 200mg twice a day for 14 days and then 200mg daily
please note that your dose of lopressor has doubled
You will be discharged on a diuretic. Weigh yourself everyday and if you gain >2lbs overnight take one dose (40mg).
Prescriptions:
New
(DME) Contour Next Test Strips Strip
Qty: 60 0RF
Rx Instructions:
Pt Testing 2 times a day
(DME) lancets [Microlet Lancet] Misc
Qty: 60 0RF
Rx Instructions:
Pt testing 2 times a day
amiodarone [Pacerone] 200 mg Tablet
200 mg PO BID Qty: 90 0RF
Rx Instructions:
take 200mg BID for 14 days and then 200mg daily until directed otherwise
Eliquis 5 mg Tablet
5 mg PO BID 30 Days Qty: 60 0RF
acetaminophen 325 mg Tablet
650 mg PO Q4HPRN PRN (Reason: mild pain,headache,temp >101F ) Qty: 0 0RF
colchicine 0.6 mg Tablet
0.3 mg PO DAILY 30 Days Qty: 15 0RF
glipizide 5 mg Tablet
5 mg PO DAILY Qty: 30 0RF
oxycodone 5 mg Tablet
2.5 mg PO Q4HPRN PRN (Reason: severe pain) Qty: 10 0RF
furosemide [Lasix] 40 mg tablet
40 mg PO DAILY PRN (Reason: Fluid retention/Swelling) Qty: 7 0RF
Rx Instructions:
Please weigh yourself every and take if you gain >2lbs overnight
Continued
levothyroxine 75 mcg Tablet
75 mcg PO DAILY
aspirin 81 mg Tablet
81 mg PO DAILY
losartan 100 mg Tablet
50 mg PO DAILY
rosuvastatin 20 mg Tablet
20 mg PO HS
dapaglifloz propaned-metformin [Xigduo XR] 5-1,000 mg Tablet, Ir - Er, Biphasic 24hr
1 tab PO BID
PreserVision AREDS 2,148 mcg-113 mg-45 mg-17.4mg Tablet
2 tab PO BID
mecobalamin (vitamin B12) [B12 Active] 1,000 mcg Tablet,Chewable
1,000 mcg PO DAILY
Changed
metoprolol succinate 25 mg Tablet Extended Release 24 Hr
50 mg PO DAILY Qty: 0 0RF
Discontinued
nitroglycerin 0.4 mg tablet, sublingual
0.4 mg sublingual [id number] PRN (Reason: chest pain) Qty: 25 5RF
Rx Instructions:
Has never taken Nitroglycerin 0.4 mg tablets.
Discharge Orders:
Discharge Patient (As Directed); Ordered 07/30/25
Ordered By: Gali Osborne
Care Plan Goals
Care Plan Goals:
Problem: Readiness for enhanced knowledge related to diagnosis and treatment plan
Goal: Understand your diagnosis and treatment plan needs, including medications if applicable.
Instructions: Know your diagnosis, underlying causes and treatment plan options, including medications if applicable. Consult with your health care team to learn about your diagnosis and treatment plan, including medications if applicable.
Discharge Date and Time
Print Language: KHMER
[2025-07-30] MEDS: LASIX 40 MG PO (08:45)
[2025-07-30] MEDS: LASIX IV (08:51)
--- NOTE | 2025-07-30 13:44 | PTCARENOTE ---
Epicardial wires cut by CT COURT RECORDER. Surgical dressings and telemetry pack removed. Assisted into shower, Using shower chair and CHG soap pt showered. Assisted with dressing. INt removed. Discharge instructions reviewed with patient and son.
Questions answered. Wheeled to car by RN.
== END 2025-07-30 13:35 | disposition home or self-care (01) | DRG 236 ==
LOC: CVICU 05:36
PROVIDERS: Anesthesiology; Nurse Practitioner; ADMITTING PHYSICIAN Thoracic Surgery (Cardiothoracic Vascular Surgery); CONSULT PHYSICIAN Internal Medicine Critical Care Medicine; FAMILY PHYSICIAN Internal Medicine
PROC: 02100ZC Bypass Coronary Artery, One Artery from Thoracic Artery, Open Approach (ICD-10-PCS; 2025-07-25)
PROC: 30233N1 Transfusion of Nonautologous Red Blood Cells into Peripheral Vein, Percutaneous Approach (ICD-10-PCS; 2025-07-25)
PROC: 5A1221Z Performance of Cardiac Output, Continuous (ICD-10-PCS; 2025-07-25)
PROC: 02100AW Bypass Coronary Artery, One Artery from Aorta with Autologous Arterial Tissue, Open Approach (ICD-10-PCS; 2025-07-25)
PROC: 03BC4ZZ Excision of Left Radial Artery, Percutaneous Endoscopic Approach (ICD-10-PCS; 2025-07-25)
PROC: 021109W Bypass Coronary Artery, Two Arteries from Aorta with Autologous Venous Tissue, Open Approach (ICD-10-PCS; 2025-07-25)
PROC: 02L70CK Occlusion of Left Atrial Appendage with Extraluminal Device, Open Approach (ICD-10-PCS; 2025-07-25)
PROC: 06BP4ZZ Excision of Right Saphenous Vein, Percutaneous Endoscopic Approach (ICD-10-PCS; 2025-07-25)
PROC: 021009W Bypass Coronary Artery, One Artery from Aorta with Autologous Venous Tissue, Open Approach (ICD-10-PCS; 2025-07-25)
PROC: B24BZZ4 Ultrasonography of Heart with Aorta, Transesophageal (ICD-10-PCS; 2025-07-25)
DX: I25.10 Atherosclerotic heart disease of native coronary artery without angina pectoris (principal); D62 Acute posthemorrhagic anemia; I31.9 Disease of pericardium, unspecified; E87.1 Hypo-osmolality and hyponatremia; J98.11 Atelectasis; E11.9 Type 2 diabetes mellitus without complications; E03.9 Hypothyroidism, unspecified; I45.10 Unspecified right bundle-branch block; D69.59 Other secondary thrombocytopenia; I35.0 Nonrheumatic aortic (valve) stenosis; E83.51 Hypocalcemia; I10 Essential (primary) hypertension; I48.0 Paroxysmal atrial fibrillation; R00.1 Bradycardia, unspecified; E86.1 Hypovolemia; E87.70 Fluid overload, unspecified; E78.00 Pure hypercholesterolemia, unspecified; Z79.82 Long term (current) use of aspirin; Z79.84 Long term (current) use of oral hypoglycemic drugs; Z79.899 Other long term (current) drug therapy; Z82.49 Family history of ischemic heart disease and other diseases of the circulatory system; Z87.891 Personal history of nicotine dependence
CPT/HCPCS: 36415; 71045; 71046; 80048; 80053; 81003; 81015; 82248; 82330; 82565; 82805; 82810; 82947; 82962; 83036; 83735; 84132; 84302; 84520; 85014; 85018; 85025; 85027; 85049; 85610; 85730; 86850; 86900; 86901; 86920; 87070; 87086; 93005; 93312; 93320; 93325; 93880; 93923; 93930; 94002; 94010; 94727; 94729; P9016; P9045; P9047